=== PATIENT | male | born 1975 | race Caucasian/White ===

== ENCOUNTER 2020-05-02 16:25 | Emergency (ER) | payer MEDICARE ==
[2020-05-02 16:44] VITALS: BP 143/76; PULSE 72; O2SAT 97
--- NOTE | 2020-05-02 16:51 | ERPHSYRPT ---
- History of Present Illness Time Seen by Provider: 05/02/20 16:30 Source: patient Exam Limitations: no limitations Patient Subjective Stated Complaint: Toe injury Triage Nursing Assessment: Patient ambulated back to ED and transferred self to bed. Patient A+O X3. Patient's skin pink, warm and dry. Patient complains of left foot, great toe pain after walking up steps and stubbing toe a couple days ago. Left foot, great toe noted to be slightly swollen, red with nail bed noted to be bruised. Toe noted to be warm. Physician History: 45 years old male presented in the ER with chief complaint of left big toe pain and swelling after he accidentally missed a step and stubbed on his left great toe 2 to 3 days ago. There was pain initially but gradually improved. No patient has bluish discoloration underneath the nail and some redness of the big toe. Patient is worried about as if it is a gangrene. Taking [id number] pain medication with significant relief of pain. No injury anywhere else Quality: aching Severity of Pain-Current: mild Lower Extremities Pain: 1st toe: left Modifying Factors: Improves With: immobilization, rest. Worsens With: movement Allergies/Adverse Reactions: penicillin G Allergy (Verified 05/02/20 16:38) Hives sulfamethoxazole [From Bactrim] Allergy (Verified 05/02/20 16:38) Rash trimethoprim [From Bactrim] Allergy (Verified 05/02/20 16:38) Rash Home Medications: Aspir 81 81 mg PO DAILY 04/15/12 [History] Mucinex 1 ea PO BID 04/15/12 [History] Patanase 1 ea PO BID 04/15/12 [History] Toprol-Xl 25MG Tablets 12.5 mg PO BID 04/15/12 [History] Divalproex Sodium ER 250 mg [Depakote EXTENDED RELEASE 250 MG] 250 mg PO BID 12/08/15 [History] Fluticasone Propionate [Flonase NASAL] 16 gm NS DAILY 12/08/15 [History] Hx Tetanus, Diphtheria Vaccination/Date Given: Yes (2019) Hx Influenza Vaccination/Date Given: Yes Hx Pneumococcal Vaccination/Date Given: No Immunizations Up to Date: Yes Travel Risk - International Travel Have you traveled outside of the country in past 3 weeks: No - Coronavirus Screening Are you exhibiting any of the following symptoms?: No Close contact with a COVID-19 positive Pt in past 14-21 Days: No - Review of Systems Constitutional: No Symptoms Ears, Nose, & Throat: No Symptoms Respiratory: No Symptoms Cardiac: No Symptoms Abdominal/Gastrointestinal: No Symptoms Musculoskeletal: Injury Skin: No Symptoms Neurological: No Symptoms - Past Medical History Pertinent Past Medical History: Yes Cardiac History: Arrhythmia GI Medical History: Gallbladder Disease Other Medical History: allergies - Past Surgical History Past Surgical History: Yes Gastrointestinal: Cholecystectomy Other Surgical History: sinus - Social History Smoking Status: Never smoker Exposure to second hand smoke: No Drug Use: none Patient Lives Alone: No - Nursing Vital Signs Nursing Vital Signs: Initial Vital Signs Temperature 98.2 F 05/02/20 16:39 Pulse Rate 72 05/02/20 16:39 Respiratory Rate 18 05/02/20 16:39 Blood Pressure 143/76 05/02/20 16:39 O2 Sat by Pulse Oximetry 97 05/02/20 16:39 Pain Scale Pain Intensity 4 - Physical Exam General Appearance: no apparent distress Neck Exam: normal inspection, supple, full range of motion Cardiovascular/Respiratory Exam: normal breath sounds, regular rate/rhythm Back Exam: normal range of motion Foot Exam: right foot: non-tender, normal inspection, no evidence of injury, left foot: pain (Minimal tenderness around nail bed. Bruised and small hematoma underneath.), swelling, bilateral foot: normal range of motion Neuro/Tendon Exam: normal sensation, normal motor functions, normal tendon functions Mental Status Exam: alert, oriented x 3, cooperative Skin Exam: normal color SpO2 Interpretation: normal SpO2: 97 O2 Delivery: Room Air - Progress Progress Note: 05/02/20 17:31 Patient has a hematoma underneath left big toe. Offered hematoma drainage and possible nail removal and imaging but patient does not want anything to be done. Patient wants to make sure it is not gangrene. Has good cap refill less than 3 seconds. His nail will probably follow-up on his own in few days. Recommended outpatient podiatry follow-up. Pain medication [id number] as needed. - Departure Departure Disposition: Home Clinical Impression: Injury of toe Qualifiers: Encounter type: initial encounter Laterality: left Qualified Code(s): S99.922A - Unspecified injury of left foot, initial encounter Condition: Critical Care Time: No Referrals: VIANEY SEAY MD [Primary Care Provider] - Follow Up with PCP/3 days MANDEEP ROA NP [NON-STAFF PHY W/O PRIVILEGES] - (follow up with Podiatry for re evaluation in 2-3 days ) Instructions: Toe Injury (DC) Additional Instructions: Take Tylenol/Aleve as needed for pain. Follow-up with primary care and podiatry for reevaluation. Return to ER for worsening pain swelling redness etc.
== END 2020-05-02 16:58 | disposition home or self-care (01) ==
LOC: ED 16:25
DX: S90.112A Contusion of left great toe without damage to nail, initial encounter (principal); M79.675 Pain in left toe(s); W22.8XXA Striking against or struck by other objects, initial encounter; Z79.899 Other long term (current) drug therapy
CPT/HCPCS: 99283

== ENCOUNTER 2020-10-22 05:53 | Day surgery (SDC) | payer MEDICARE ==
[2020-10-22] MEDS ORDERED: Lactated Ringers 1,000 ML IV SCH (06:30)
[2020-10-22] MEDS ORDERED: DIPRIVAN 200 MG/20 ML IV ONE ×2 (06:57→07:29)
[2020-10-22 08:58] VITALS: PULSE 63; O2SAT 99
[2020-10-22 09:01] VITALS: BP 148/78
--- NOTE | 2020-10-22 12:50 | OP ---
SURGERY DATE/TIME: 10/22/2020 0700 PREOPERATIVE DIAGNOSIS: Rectal bleeding. POSTOPERATIVE DIAGNOSES: 1) Two small polyps in the colon. 2) Sigmoid diverticulosis, mild. 3) Mild hemorrhoids. PROCEDURE: Colonoscopy with cold forceps biopsy. SURGEON: Dr. Crump. ANESTHESIA: MAC. Medications given by anesthesia department. HISTORY: The patient is a 45 year-old white male patient who reports he had an episode of rectal bleeding about three weeks ago. He has seen intermittent blood since that time. He is unaware of any significant hemorrhoids. The patient was felt the need to have endoscopic evaluation. He was appraised of the risks of the procedure including the risk of perforation, phlebitis, untoward reaction to medication, bleeding and missed lesions. The patient verbalized his understanding and desired to have the procedure performed. DESCRIPTION OF PROCEDURE: The patient was given the medications by the anesthesia department. He had continuous pulse oximetry, ECG monitoring, intermittent blood pressure monitoring and tidal CO2 monitoring during the examination. He was placed in the left lateral decubitus position. A digital rectal examination was performed and revealed external mild hemorrhoids, normal sphincter tone and prostate was felt to be normal. The flexible Olympus pediatric colonoscope was used to intubate the rectum. A view of the colon was developed sequentially to the cecum including a short distance in the terminal ileum. We noted two small polyps one in the mid transverse colon and one in the mid sigmoid colon measuring approximately 8.7 cm in size and these were biopsied using cold biopsy technique and destroying the lesions. Upon insertion and withdrawal, including a retroflex view in the rectum, no other mucosal lesions were encountered. The scope was removed from the patient who tolerated the procedure well and was sent back to OP recovery in good condition.
== END 2020-10-22 08:50 | disposition home or self-care (01) ==
LOC: SDC 05:53
PROVIDERS: ATTEND Family Medicine
DX: D12.3 Benign neoplasm of transverse colon (principal); K57.30 Diverticulosis of large intestine without perforation or abscess without bleeding; K64.4 Residual hemorrhoidal skin tags
CPT/HCPCS: J2704

== ENCOUNTER 2021-05-16 10:40 | Emergency (ER) | payer MEDICARE ==
--- NOTE | 2021-05-16 11:42 | ERPHSYRPT ---
- History of Present Illness Source: patient Patient Subjective Stated Complaint: Cough Triage Nursing Assessment: Patient ambulated back to ED and transferred self to bed. Patient A+O X3. Patient's skin pink, warm and dry. Patient complains of cough, headache and SOB for one week. Patient denies pain or discomfort. Lungs clear a/p zoey. Physician History: 46 yo unvaccinated male w cough/coryza x 1-[address]/N/V/dyspnea/BELCHER/fever/myalgias. Timing/Duration: other (1-2 wks) Cough Quality/Degree: dry cough Possible Cause: no prior episodes Modifying Factors: Improves With: coughing Associated Symptoms: cough, nasal congestion, nasal drainage, No fever, No chills, No chest pain/soreness, No dizziness, No earache, No facial pain, No headache, No lightheadedness, No muscle aches, No shortness of breath, No sinus infection, No sore throat, No wheezing Allergies/Adverse Reactions: levofloxacin [From Levaquin] Allergy (Verified 05/16/21 10:53) Muscle Aches mold Allergy (Verified 05/16/21 10:53) penicillin G Allergy (Verified 05/16/21 10:53) Hives sulfamethoxazole [From Bactrim] Allergy (Verified 05/16/21 10:53) Rash trimethoprim [From Bactrim] Allergy (Verified 05/16/21 10:53) Rash corn pollen Allergy (Uncoded 05/16/21 10:53) Home Medications: Ascorbic Acid 500 mg [Vitamin C 500 MG] 500 mg PO DAILY 10/15/20 [History] Aspirin EC 81 mg [Ecotrin 81 mg] 81 mg PO DAILY 10/15/20 [History] Azelastine Nasal [Astelin Nasal] 1 ml INTRANASAL BID 10/15/20 [History] Divalproex Sodium ER 250 mg [Depakote EXTENDED RELEASE 250 MG] 250 mg PO BID 10/15/20 [History] Fluticasone Propionate [Flovent Diskus] 50 mcg IH DAILY 10/15/20 [History] Guaifenesin 600 mg ER [Mucinex 600MG ER Tabs] 600 mg PO BID 10/15/20 [History] Metoprolol Succinate 25 mg Xl* [Toprol-Xl 25MG Tablets] 0.5 tab PO BID 10/15/20 [History] Metronidazole [Rosadan] 45 gm TP BID 10/15/20 [History] PANTOPRAZOLE 40 mg Tablet [Protonix 40MG Tablet] 40 mg PO QAM 10/15/20 [History] Pyridoxine HCl (Vitamin B6) [Vitamin B6] 100 mg PO DAILY 10/15/20 [History] Hx Tetanus, Diphtheria Vaccination/Date Given: Yes (2019) Hx Influenza Vaccination/Date Given: Yes Hx Pneumococcal Vaccination/Date Given: No Immunizations Up to Date: Yes Travel Risk - International Travel Have you traveled outside of the country in past 3 weeks: No - Coronavirus Screening Are you exhibiting any of the following symptoms?: Yes Symptoms: Cough: New Onset, Shortness of Breath, Loss of Taste or Smell Close contact with a COVID-19 positive Pt in past 14-21 Days: No - Vaccine Status Have you recieved a Covid-19 vaccination: No - Review of Systems Constitutional: No Symptoms Eyes: No Symptoms Ears, Nose, & Throat: Nose Pain, Nose Congestion, Nose Discharge, Sinus Drainage Respiratory: No Symptoms, Cough Cardiac: No Symptoms Abdominal/Gastrointestinal: No Symptoms Genitourinary Symptoms: No Symptoms Musculoskeletal: No Symptoms Skin: No Symptoms Neurological: No Symptoms Psychological: No Symptoms Endocrine: No Symptoms Hematologic/Lymphatic: No Symptoms Immunological/Allergic: No Symptoms - Past Medical History Pertinent Past Medical History: Yes Neurological History: Migraines ENT History: No Pertinent History Cardiac History: High Cholesterol, Other Respiratory History: Other Endocrine Medical History: No Pertinent History Musculoskeletal History: Arthritis GI Medical History: Gallbladder Disease History: No Pertinent History Psycho-Social History: No Pertinent History Male Reproductive Disorders: No Pertinent History Other Medical History: Allergies, Tacchycardia, Cholecystectomy, Benign Skin Tumor removal L-side of upper back and chest, Sinus Surgery, Cyst removal on chest - Past Surgical History Past Surgical History: Yes Neuro Surgical History: No Pertinent History Cardiac: No Pertinent History Respiratory: No Pertinent History Gastrointestinal: Cholecystectomy Genitourinary: No Pertinent History Musculoskeletal: No Pertinent History Male Surgical History: No Pertinent History Other Surgical History: sinus surgery. keloid removed from back - Social History Smoking Status: Never smoker Exposure to second hand smoke: No Drug Use: none Patient Lives Alone: No - Nursing Vital Signs Nursing Vital Signs: Initial Vital Signs Temperature 98.0 F 05/16/21 10:53 Pulse Rate 75 05/16/21 10:53 Respiratory Rate 18 05/16/21 10:53 Blood Pressure 183/97 05/16/21 10:53 O2 Sat by Pulse Oximetry 98 05/16/21 10:53 Pain Scale Pain Intensity 0 Hypertensive - Physical Exam General Appearance: no apparent distress Eye Exam: PERRL/EOMI, eyes nml inspection Ears, Nose, Throat Exam: normal ENT inspection, TMs normal, pharynx normal, moist mucous membranes Neck Exam: normal inspection, non-tender, supple, full range of motion, No meningismus, No mass, No Brudzinski, No Kernig's, No carotid bruit Respiratory Exam: normal breath sounds, lungs clear, airway intact Cardiovascular Exam: regular rate/rhythm, normal heart sounds, normal peripheral pulses, No murmur Gastrointestinal/Abdomen Exam: soft, normal bowel sounds, No tenderness Back Exam: normal inspection, normal range of motion, No CVA tenderness, No vertebral tenderness Extremity Exam: normal inspection, normal range of motion Neurologic Exam: alert, oriented x 3, cooperative, 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, normal mood/affect, nml cerebellar function, nml station & gait, sensation nml, No motor deficits, No sensory deficit Skin Exam: normal color, warm, dry Lymphatic Exam: inguinal node tender (L), No adenopathy SpO2: 97 O2 Delivery: Room Air - Course Nursing assessment & vital signs reviewed: Yes Ordered Tests: Active Orders 24 hr Category Date Time Status COVID AG-BINAX NOW RAPID TEST Stat Lab 05/16/21 11:04 Completed INFLUENZA A+B ANGELICA Stat Lab 05/16/21 11:04 Completed Lab/Rad Data: Laboratory Results 05/16/21 05/16/21 Range/Units 11:04 11:04 Influenza Type A Ag NEGATIVE (NEGATIVE) Influenza Type B Ag NEGATIVE (NEGATIVE) SARS-CoV-2 Ag (Rapid) POSITIVE A* (NEGATIVE) - Progress Progress Note: 05/16/21 18:27 BP decreasing before discharge Counseled pt/family regarding: lab results, diagnosis, need for follow-up - Departure Departure Disposition: Home Clinical Impression: COVID Condition: Stable Critical Care Time: No Referrals: ALBA FLOWERS MD [Primary Care Provider] - Follow up/PCP as directed Instructions: Cough, Adult (DC), Coronavirus Disease 2019 (COVID-19) (DC) Additional Instructions: Motrin/Tylenol for pain/fever Fluids Get a pulse oximeter and monitor oxygen saturation 2-3 times a day Return to ER for persistent oxygen saturation less than 91% VitaminD 10,000units a day/[id number] a day/Pepcid 40mg a day Follow up with your family Quarantine for 5 days
[2021-05-16 11:44] LABS: COVID AG -BINAX NOW RAPID TEST POSITIVE (NEGATIVE)
[2021-05-16 12:16] VITALS: BP 147/69; PULSE 72
[2021-05-16 12:23] LABS: INFLUENZA A NEGATIVE (NEGATIVE); INFLUENZA B NEGATIVE (NEGATIVE)
[2021-05-16 18:28] VITALS: O2SAT 97
== END 2021-05-16 12:15 | disposition home or self-care (01) ==
LOC: ED 10:40
DX: U07.1 COVID-19 (principal); R05.9 Cough, unspecified; R09.81 Nasal congestion; E78.5 Hyperlipidemia, unspecified; Z79.899 Other long term (current) drug therapy
CPT/HCPCS: 87400; 99000; 99283

== ENCOUNTER 2021-07-09 15:49 | Emergency (ER) | payer MEDICARE ==
[2021-07-09] MEDS ORDERED: Reglan 10 MG/2 ML IV ONE (16:05)
[2021-07-09] MEDS ORDERED: Sodium Chloride 0.9% 1000 ML 1,000 ML IV STA (16:05)
[2021-07-09] MEDS ORDERED: PROTONIX 40 MG IV IV ONE ×2 (16:05→16:34)
[2021-07-09] MEDS ORDERED: Pepcid 20 MG VIAL IV ONE ×2 (16:05→16:34)
[2021-07-09 16:25] LABS: Hematocrit 53.6 % (42-50); Hemoglobin 18.8 gm/dl (12.5-18.0); Mean Cell Volume 84.9 fl (78-100); Mean Corpuscular Hemoglobin 29.8 pg (26-32); Mean Corpuscular Hgb Concent. 35.1 g/dl (32-36); Mean Platelet Volume 9.6 fl (7.5-11.0); Platelet Count 148 K/mm3 (150-450); Red Blood Count 6.31 M/mm3 (4.1-5.6); Red Cell Distribution Width 14.3 % (11.5-14.0); White Blood Count 10.3 K/mm3 (4.0-10.5)
[2021-07-09] MEDS ORDERED: Reglan 10 MG/2 ML ONE (16:34)
[2021-07-09] MEDS ORDERED: Sodium Chloride 0.9% 1000 ML 1,000 ML ONE (16:34)
[2021-07-09 16:39] LABS: ALBUMIN 4.8 g/dL (3.5-5.0); ALKALINE PHOSPHATASE 73 U/L (38-126); AMYLASE 66 U/L (30-110); ANION GAP 16.5 MEQ/L (5-15); BLOOD UREA NITROGEN 15 mg/dL (9-20); CHLORIDE 97 mmol/L (98-107); Carbon Dioxide 27 mmol/L (22-30); Creatinine 1 0.66 mg/dL (0.66-1.25); EST GLOMERULAR FILTRATION RATE > 60.0 ML/MIN; Glucose 112 mg/dL (74-106); LIPASE 46 U/L (23-300); Potassium 4.3 mmol/L (3.5-5.1); SGOT/AST 45 U/L (17-59); SGPT/ALT 47 U/L (0-50); SODIUM 136 mmol/L (137-145); Total Protein 7.2 g/dL (6.3-8.2)
--- NOTE | 2021-07-09 16:39 | ERPHSYRPT ---
- History of Present Illness Time Seen by Provider: 07/09/21 16:37 Historian: patient Exam Limitations: no limitations Patient Subjective Stated Complaint: Abdominal pain Triage Nursing Assessment: Patient ambulated back to ED and transferred self to bed. Patient A+O X3. Patient's skin pink, warm and dry. Patient complains of upper abdominal pain that radiates through the back 5/10. Abdomen soft and round with BS X 4. Patient states pain is worse when drinking or eating. Patient complains of nausea, but denies vomiting or diarrhea. Physician History: Patient is 46-year-old male came to the emergency room with complaining of epigastric abdominal pain which radiated to the back which started yesterday. Patient states that his pain get worse when he eats or drinks. Patient denies this type of symptoms before. Patient has a significant past medical history of chronic allergies sinusitis and hypertension. Patient denies any blood in the stool or urine as well as patient also denies any dizziness chest pain nausea or vomiting. Timing/Duration: yesterday Activities at Onset: none Quality: cramping Abdominal Pain Onset Location: epigastric Pain Radiation: back Severity of Pain-Max: mild Severity of Pain-Current: mild Modifying Factors: Improves With: nothing Associated Symptoms: denies symptoms Allergies/Adverse Reactions: levofloxacin [From Levaquin] Allergy (Verified 07/09/21 15:59) Muscle Aches mold Allergy (Verified 07/09/21 15:59) penicillin G Allergy (Verified 07/09/21 15:59) Hives sulfamethoxazole [From Bactrim] Allergy (Verified 07/09/21 15:59) Rash trimethoprim [From Bactrim] Allergy (Verified 07/09/21 15:59) Rash corn pollen Allergy (Uncoded 07/09/21 15:59) Home Medications: Ascorbic Acid 500 mg [Vitamin C 500 MG] 500 mg PO DAILY 10/15/20 [History] Aspirin EC 81 mg [Ecotrin 81 mg] 81 mg PO DAILY 10/15/20 [History] Azelastine Nasal [Astelin Nasal] 1 ml INTRANASAL BID 10/15/20 [History] Divalproex Sodium ER 250 mg [Depakote EXTENDED RELEASE 250 MG] 250 mg PO BID 10/15/20 [History] Fluticasone Propionate [Flovent Diskus] 50 mcg IH DAILY 10/15/20 [History] Guaifenesin 600 mg ER [Mucinex 600MG ER Tabs] 600 mg PO BID 10/15/20 [History] Metoprolol Succinate 25 mg Xl* [Toprol-Xl 25MG Tablets] 0.5 tab PO BID 10/15/20 [History] Metronidazole [Rosadan] 45 gm TP BID 10/15/20 [History] PANTOPRAZOLE 40 mg Tablet [Protonix 40MG Tablet] 40 mg PO QAM 10/15/20 [ History] Pyridoxine HCl (Vitamin B6) [Vitamin B6] 100 mg PO DAILY 10/15/20 [History] Hx Tetanus, Diphtheria Vaccination/Date Given: Yes ( Hx Influenza Vaccination/Date Given: Yes Hx Pneumococcal Vaccination/Date Given: No Immunizations Up to Date: Yes Travel Risk - International Travel Have you traveled outside of the country in past 3 weeks: No - Coronavirus Screening Are you exhibiting any of the following symptoms?: No Close contact with a COVID-19 positive Pt in past 14-21 Days: No - Vaccine Status Have you recieved a Covid-19 vaccination: No - Review of Systems Constitutional: No Fever, No Chills Eyes: No Symptoms Ears, Nose, & Throat: No Symptoms Respiratory: No Cough, No Dyspnea Cardiac: No Chest Pain, No Edema, No Syncope Abdominal/Gastrointestinal: Abdominal Pain, No Nausea, No Vomiting, No Diarrhea Genitourinary Symptoms: No Dysuria Musculoskeletal: No Back Pain, No Neck Pain Skin: No Rash Neurological: No Dizziness, No Focal Weakness, No Sensory Changes Psychological: No Symptoms Endocrine: No Symptoms All Other Systems: Reviewed and Negative - Past Medical History Pertinent Past Medical History: Yes Neurological History: Migraines ENT History: No Pertinent History Cardiac History: High Cholesterol, Other Respiratory History: Other Endocrine Medical History: No Pertinent History Musculoskeletal History: Arthritis GI Medical History: Gallbladder Disease History: No Pertinent History Psycho-Social History: No Pertinent History Male Reproductive Disorders: No Pertinent History Other Medical History: Allergies, Tacchycardia, Cholecystectomy, Benign Skin Tumor removal L-side of upper back and chest, Sinus Surgery, Cyst removal on chest - Past Surgical History Past Surgical History: Yes Neuro Surgical History: No Pertinent History Cardiac: No Pertinent History Respiratory: No Pertinent History Gastrointestinal: Cholecystectomy Genitourinary: No Pertinent History Musculoskeletal: No Pertinent History Male Surgical History: No Pertinent History Other Surgical History: sinus surgery. keloid removed from back - Social History Smoking Status: Never smoker Exposure to second hand smoke: No Drug Use: none Patient Lives Alone: No - Nursing Vital Signs Nursing Vital Signs: Initial Vital Signs Temperature 97.6 F 07/09/21 16:00 Pulse Rate 103 H 07/09/21 16:00 Respiratory Rate 18 07/09/21 16:00 Blood Pressure 174/103 07/09/21 16:00 O2 Sat by Pulse Oximetry 100 07/09/21 16:00 Pain Scale Pain Intensity 5 - Physical Exam General Appearance: no apparent distress, alert Eye Exam: PERRL/EOMI, eyes nml inspection Ears, Nose, Throat Exam: normal ENT inspection, pharynx normal, moist mucous membranes Neck Exam: normal inspection, non-tender, supple, full range of motion Respiratory Exam: normal breath sounds, lungs clear, No respiratory distress Cardiovascular Exam: regular rate/rhythm, normal heart sounds Gastrointestinal/Abdomen Exam: soft, tenderness (mild ), No mass Back Exam: normal inspection, normal range of motion, No CVA tenderness, No vertebral tenderness Extremity Exam: normal inspection, normal range of motion, pelvis stable Neurologic Exam: alert, oriented x 3, cooperative, normal mood/affect, nml cerebellar function, sensation nml, No motor deficits Skin Exam: normal color, warm, dry SpO2: 100 - Course Nursing assessment & vital signs reviewed: Yes - Radiology Exams Abdomen X-ray Interpretation: Reviewed by me Ordered Tests: Active Orders 24 hr Category Date Time Status OBSTR/ACUTE ABDOMEN SERIES Stat Exams 07/09/21 16:05 Taken AMYLASE Stat Lab 07/09/21 16:15 Completed CBC W DIFF Stat Lab 07/09/21 16:15 Completed CMP Stat Lab 07/09/21 16:15 Completed LIPASE Stat Lab 07/09/21 16:15 Completed Manual Differential NC Stat Lab 07/09/21 16:15 Completed Medication Summary Discontinued Medications Generic Name Dose Route Start Last Admin Trade Name Freq PRN Reason Stop Dose Admin Famotidine 20 mg 07/09/21 16:05 07/09/21 16:36 Famotidine 20 Mg/1 Vial IV 07/09/21 16:06 20 mg STAT ONE Administration Famotidine Confirm 07/09/21 16:34 Famotidine 20 Mg/1 Vial Administered 07/09/21 16:35 Dose 20 mg IV .STK-MED ONE Sodium Chloride 1,000 mls @ 999 mls/hr 07/09/21 16:05 07/09/21 16:36 Sodium Chloride 0.9% 1000 Ml IV 07/09/21 17:05 999 mls/hr .Q1H1M STA Administration Sodium Chloride Confirm 07/09/21 16:34 Sodium Chloride 0.9% 1000 Ml Administered 07/09/21 16:35 Dose 1,000 mls @ ud .ROUTE .STK-MED ONE Metoclopramide HCl 10 mg 07/09/21 16:05 07/09/21 16:36 Metoclopramide Hcl 10 Mg/2 Ml Vial IV 07/09/21 16:06 10 mg STAT ONE Administration Metoclopramide HCl Confirm 07/09/21 16:34 Metoclopramide Hcl 10 Mg/2 Ml Vial Administered 07/09/21 16:35 Dose 10 mg .ROUTE .STK-MED ONE Pantoprazole Sodium 40 mg 07/09/21 16:05 07/09/21 16:37 Pantoprazole 40 Mg Vial IV 07/09/21 16:06 40 mg STAT ONE Administration Pantoprazole Sodium Confirm 07/09/21 16:34 Pantoprazole 40 Mg Vial Administered 07/09/21 16:35 Dose 40 mg IV .STK-MED ONE Lab/Rad Data: Laboratory Result Diagrams 07/09/21 16:15 07/09/21 16:15 Laboratory Results 07/09/21 07/09/21 Range/Units 16:15 16:15 WBC 10.3 (4.0-10.5) K/mm3 RBC 6.31 H (4.1-5.6) M/mm3 Hgb 18.8 H (12.5-18.0) gm/dl Hct 53.6 H (42-50) % MCV 84.9 (78-100) fl MCH 29.8 (26-32) pg MCHC 35.1 (32-36) g/dl RDW 14.3 H (11.5-14.0) % Plt Count 148 L (150-450) K/mm3 MPV 9.6 (7.5-11.0) fl Sodium 136 L (137-145) mmol/L Potassium 4.3 (3.5-5.1) mmol/L Chloride 97 L (98-107) mmol/L Carbon Dioxide 27 (22-30) mmol/L Anion Gap 16.5 H (5-15) MEQ/L BUN 15 (9-20) mg/dL Creatinine 0.66 (0.66-1.25) mg/dL Estimated GFR > 60.0 ML/MIN Glucose 112 H (74-106) mg/dL Calcium 9.0 (8.4-10.2) mg/dL Total Bilirubin 1.50 H (0.2-1.3) mg/dL AST 45 (17-59) U/L ALT 47 (0-50) U/L Alkaline Phosphatase 73 (38-126) U/L Serum Total Protein 7.2 (6.3-8.2) g/dL Albumin 4.8 (3.5-5.0) g/dL Amylase 66 (30-110) U/L Lipase 46 (23-300) U/L - Progress Progress: improved, pain not gone completely Counseled pt/family regarding: lab results, diagnosis, need for follow-up, rad results - Departure Departure Disposition: Home Clinical Impression: Epigastric abdominal pain, Gastritis and duodenitis Condition: Stable Critical Care Time: No Referrals: ALBA FLOWERS MD [Primary Care Provider] - Follow up/PCP as directed Instructions: Acute Abdomen (Belly Pain), Adult (DC), Acid Reflux and GERD in Adults (DC) Additional Instructions: Discharge/Care Plan FELIPE HOUSTON was seen on 07/09/21 in the Emergency Room. The patient was counseled regarding Diagnosis,Lab results, Imaging studies, need for follow up and when to return to the Emergency Room. Prescriptions given: Discharge Note I have spoken with the patient and/or caregivers. I have explained the patient's condition, diagnosis and treatment plan based on the information available to me at this time. I have answered the patient's and/or caregiver's questions and addressed any concerns. The patient and/or caregivers have as good understanding of the patient's diagnosis, condition and treatment plan as can be expected at this point. The vital signs have been stable. The patient's condition is stable and appropriate for discharge from the emergency department. The patient will pursue further outpatient evaluation with the primary care physician or other designated or consulting physician as outlined in the discharge instructions. The patient and/or caregivers are agreeable to this plan of care and follow-up instructions have been explained in detail. The patient and/or caregivers have received these instruction. The patient/and or caregivers are aware that any significant change in condition or worsening of symptoms should prompt an immediate return to this or the closest emergency department or call 911. FELIPE HOUSTON was seen on 07/09/21 n the Emergency Room. At that time you were treated for an emergent condition, during your visit Laboratory, Radiology and/or other procedures may have been ordered. It is very important that you follow-up with your Primary Care Physician ALBA FLOWERS within the next 24-48 hours to review your Emergency Room visit and the final results of testing that was ordered. Some test results such as Urine Cultures, Blood Cultures, and other cultures if ordered will not be finalized for 24-48 hours. If you do not have a Primary Care Provider please call the medical records department at [phone] ext [phone] to obtain a copy of your results or you may sign into our patient portal to obtain these results by visiting us [email or web address] and completing the following steps: 1. Click on the Patient Portal link 2. Click the Patient Self Enrollment Link to complete the enrollment form and entering your 3. Once the enrollment form is completed you will receive an email with a temporary ID and password at the email address you provided. 4. Next choose a user name and password. Your user name must be at least 4 characters long and your password must be at least 4 characters long. 5. Choose a security question from the list and provide your answer to the question. If you already have signed into the Health Portal you may access your Health Care Information 06/11 by the following steps: 1. Login to our website @ [email or web address] 2. Enter your original user name and password. FAQS The [facility] Health Portal is an online tool that contains your Lab Results, Radiology Reports, Visit History, Discharge Instructions and Health Summary Lab and Radiology Results will not be available for 72 hours on the portal. The Portal is a secure site, passwords are encryted and URLs are re-written so they cannot be copied and pasted. You and authorized family members are the only ones who can access your Portal. Also there is a timeout feature that protects your information if you leave the Portal page open. If you have technical difficulty please use the Contact Us link on the page this will allow you to submit any questions you have regarding the Portal or you may contact the Medical Record Department at [phone] ext [phone]. Prescriptions: Famotidine 20 mg PO BID #30 tablet
[2021-07-09 17:25] VITALS: PULSE 96; O2SAT 97
[2021-07-09 17:26] VITALS: BP 141/101
--- NOTE | 2021-07-09 20:28 | XRAY ---
Indication: Epigastric pain. Comparison: Chest exam April 17, 2019. 2 view abdomen nonacute and nonobstructed with mild diffuse fecal stasis greatest in ascending and transverse colon. Cholecystectomy clips. Remaining solid organs and osseous structures unremarkable. PA chest demonstrates new minimal left base fibrosis/scarring. Remaining heart and lungs unremarkable. Bony thorax intact. Impression: Mild fecal stasis. Continued nonacute one view chest.
== END 2021-07-09 17:30 | disposition home or self-care (01) ==
LOC: ED 15:49
DX: K29.70 Gastritis, unspecified, without bleeding (principal); K29.80 Duodenitis without bleeding; R10.13 Epigastric pain; E78.5 Hyperlipidemia, unspecified; Z79.899 Other long term (current) drug therapy
CPT/HCPCS: 36000; 36415; 74022; 80053; 82150; 83690; 85025; 96374; 96375; 99284

== ENCOUNTER 2022-09-24 10:50 | Emergency (ER) | payer MEDICARE ==
--- NOTE | 2022-09-24 11:00 | ERPHSYRPT ---
- History of Present Illness Time Seen by Provider: 09/24/22 10:59 Source: patient Exam Limitations: no limitations Physician History: This is a 47-year-old white male patient of Dr. Flowers who has chronic back pain issues. As recent as 07/21/[address] scan of the abdomen and pelvis with contrast. The osseous structures were intact with mild to moderate degenerative spondylosis throughout the thoracolumbar spine. Today, the patient slipped on wet pavement on steps. He felt a "crunch" in the lower lumbar region. He was able to ambulate without apparent difficulty to his emergency department room. Patient has a history of gastroesophageal reflux disease and seizure disorder. Timing/Duration: today Method of Injury: slipped (Slipped on wet concrete) Quality: aching Back Pain Location: lumbar spine Severity of Pain-Max: moderate Severity of Pain-Current: mild (Mild to moderate) Modifying Factors: Improves With: movement Associated Symptoms: denies symptoms, lower back pain, muscle spasms, No urinary incontinence, No problems urinating, No numbness in legs/feet, No sensory/motor loss, No tingling in legs/feet Previous symptoms: same symptoms as today, no recent treatment Allergies/Adverse Reactions: levofloxacin [From Levaquin] Allergy (Verified 09/24/22 11:08) Muscle Aches mold Allergy (Verified 09/24/22 11:08) penicillin G Allergy (Verified 09/24/22 11:08) Hives sulfamethoxazole [From Bactrim] Allergy (Verified 09/24/22 11:08) Rash trimethoprim [From Bactrim] Allergy (Verified 09/24/22 11:08) Rash corn pollen Allergy (Uncoded 09/24/22 11:08) Home Medications: Ascorbic Acid 500 mg [Vitamin C 500 MG] 500 mg PO DAILY 10/15/20 [History] Aspirin EC 81 mg [Ecotrin 81 mg] 81 mg PO DAILY 10/15/20 [History] Azelastine Nasal [Astelin Nasal] 1 ml INTRANASAL BID 10/15/20 [History] Divalproex Sodium ER 250 mg [Depakote EXTENDED RELEASE 250 MG] 250 mg PO BID 10/15/20 [History] Fluticasone Propionate [Flovent Diskus] 50 mcg IH DAILY 10/15/20 [History] Metoprolol Succinate 25 mg Xl* [Toprol-Xl 25MG Tablets] 0.5 tab PO BID 10/15/20 [History] Metronidazole [Rosadan] 45 gm TP BID 10/15/20 [History] PANTOPRAZOLE 40 mg Tablet [Protonix 40MG Tablet] 40 mg PO QAM 10/15/20 [History] Hx Tetanus, Diphtheria Vaccination/Date Given: Yes (2019) Hx Influenza Vaccination/Date Given: Yes Hx Pneumococcal Vaccination/Date Given: No Travel Risk - International Travel Have you traveled outside of the country in past 3 weeks: No - Coronavirus Screening Are you exhibiting any of the following symptoms?: No Close contact with a COVID-19 positive Pt in past 14-21 Days: No - Vaccine Status Have you recieved a Covid-19 vaccination: No - Review of Systems Constitutional: No Symptoms Eyes: No Symptoms Ears, Nose, & Throat: No Symptoms Respiratory: No Symptoms Cardiac: No Symptoms Abdominal/Gastrointestinal: No Symptoms Genitourinary Symptoms: No Symptoms Musculoskeletal: Back Pain, Fall Skin: No Symptoms Neurological: No Symptoms Psychological: No Symptoms Endocrine: No Symptoms Hematologic/Lymphatic: No Symptoms Immunological/Allergic: No Symptoms All Other Systems: Reviewed and Negative - Past Medical History Pertinent Past Medical History: Yes Neurological History: Migraines ENT History: No Pertinent History Cardiac History: High Cholesterol, Other Respiratory History: Other Endocrine Medical History: No Pertinent History Musculoskeletal History: Arthritis GI Medical History: Gallbladder Disease History: No Pertinent History Psycho-Social History: No Pertinent History Male Reproductive Disorders: No Pertinent History Other Medical History: Allergies, Tacchycardia, Cholecystectomy, Benign Skin Tumor removal L-side of upper back and chest, Sinus Surgery, Cyst removal on chest - Past Surgical History Past Surgical History: Yes Neuro Surgical History: No Pertinent History Cardiac: No Pertinent History Respiratory: No Pertinent History Gastrointestinal: Cholecystectomy Genitourinary: No Pertinent History Musculoskeletal: No Pertinent History Male Surgical History: No Pertinent History Other Surgical History: sinus surgery. keloid removed from back - Social History Smoking Status: Never smoker Exposure to second hand smoke: No Drug Use: none Patient Lives Alone: No - Nursing Vital Signs Nursing Vital Signs: Initial Vital Signs Temperature 97.0 F 09/24/22 11:20 Pulse Rate 63 09/24/22 11:20 Respiratory Rate 18 09/24/22 11:20 Blood Pressure 141/80 09/24/22 11:20 O2 Sat by Pulse Oximetry 99 09/24/22 11:20 Pain Scale Pain Intensity [Left Back] 7 Pain Intensity 7 - Physical Exam General Appearance: no apparent distress, alert, anxiety Eye Exam: PERRL/EOMI, eyes nml inspection Ears, Nose, Throat Exam: normal ENT inspection, moist mucous membranes Neck Exam: normal inspection, non-tender, supple, full range of motion Respiratory Exam: airway intact, No chest tenderness, No respiratory distress Gastrointestinal Exam: No tenderness Rectal Exam: not done Back Exam: normal inspection, normal range of motion, muscle spasm (Lumbar level, bilateral), No CVA tenderness, No vertebral tenderness Extremity Exam: normal inspection, normal range of motion, pelvis stable Neurologic Exam: alert, oriented x 3, cooperative, blacksmith helper II-XII nml as tested, normal mood/affect, nml cerebellar function, nml station & gait, sensation nml Skin Exam: normal color, warm, dry Lymphatic Exam: No adenopathy SpO2 Interpretation: normal - Course Nursing assessment & vital signs reviewed: Yes Ordered Tests: Active Orders 24 hr Category Date Time Status LUMBAR LIMITED (2 OR 3 VIEWS) Stat Exams 09/24/22 11:45 Taken - Progress Progress: unchanged, pain not gone completely, re-examined Progress Note: 09/24/22 11:50 Lumbar spine x-rays interpreted by me. No acute fracture or subluxation present. This patient's medical issue is 1 of low complexity. The level of complexity and the work-up performed is based on review of the patient's past medical history, review of the patient's past radiographic studies, reviewed the patient's medication list, reviewed the patient's drug allergy list, history of present illness and physical findings on examination. The work-up on this patient includes lumbar spine x-rays which were interpreted by me. The patient, clinically, shows full range of motion. Radiographically he has no acute, emergent findings. We will send prescriptions to his pharmacy to include prednisone and orphenadrine if there are no contraindications. Patient is to follow-up with his primary care provider. Patient does have chronic low back pain issues and degenerative changes. Counseled pt/family regarding: diagnosis, need for follow-up, rad results Medical Desision Making - Diagnostic Testing Diagnostic test were ordered, analyzed, and reviewed by me: Yes Radiological Interpretation: Interpreted by me - Risk of complications The pt has a mod risk of morbidity or mortality based on: Need for prescription drug management - Departure Departure Disposition: Home Clinical Impression: Low back pain, Fall with no significant injury Condition: Stable Critical Care Time: No Referrals: ALBA FLOWERS MD [Primary Care Provider] - Follow up/PCP as directed Additional Instructions: Take your medication as prescribed. Call your primary care provider tomorrow, 09/25/2022 to make arranges for follow-up appointment for further evaluation and management including possible referral to a pain specialist and/or back specialist if indicated. Prescriptions: Prednisone 10 mg [Deltasone 10 mg] 10 mg PO TID #12 tablet Orphenadrine Citrate 100 mg [Norflex 100 MG Tablet] 100 mg PO BID #10 tab
[2022-09-24 11:21] VITALS: BP 141/80; PULSE 63; O2SAT 99
--- NOTE | 2022-09-24 19:15 | XRAY ---
Indication: Pain following fall. Comparison: January 16, 2020 3 view lumbar spine demonstrates new minimally displaced left L1/L2 transverse process fractures. Stable old right L2/left L3 transverse process fractures, minimal multilevel endplate spurring, bilateral L5 spondylolysis with minimal listhesis, and cholecystectomy clips. Comment: Fractures not reported by interpreting ER clinician. Telephone report was given to Dr. Layton at 1911 hrs. on September 24, 2022.
== END 2022-09-24 12:20 | disposition home or self-care (01) ==
LOC: ED 10:50
DX: S32.019A Unspecified fracture of first lumbar vertebra, initial encounter for closed fracture (principal); S32.029A Unspecified fracture of second lumbar vertebra, initial encounter for closed fracture; W10.9XXA Fall (on) (from) unspecified stairs and steps, initial encounter; M54.50 Low back pain, unspecified; E78.5 Hyperlipidemia, unspecified; Z79.52 Long term (current) use of systemic steroids; Z79.899 Other long term (current) drug therapy; Z28.310 Unvaccinated for COVID-19
CPT/HCPCS: 72100; 99282

== ENCOUNTER 2023-03-25 19:38 | Emergency (ER) | payer MEDICARE ==
--- NOTE | 2023-03-25 20:53 | ERPHSYRPT ---
- History of Present Illness Time Seen by Provider: 03/25/23 19:46 Patient Subjective Stated Complaint: pt states that he has had a forehead/ frontal headache since earlier this morning and at 1100 he started having bilat upper abdominal pain (epigastric) that at times radiates down to mid and lower abd bilat but is constant dull ache in epigasric area. reports also being nauseated but hasn't vomited and that he has had several stools today but there weren't diarrhea and didn't contain any visible blood. pt reports just prior to coming to ED his temperature was 102.4 Triage Nursing Assessment: pt ambulated to room 9 independently with slow steady gait after standing on scale for weight acquisition and to restroom to provide urine sample. pt is alert and oriented times three, able to speak in complete sentences, able to move all extremities, and with resp even and unlabored. abdomen is soft, obese, nontender to touch, and with positive bowel sounds in all quadrants. pt denies cp, sob, difficulty breathing, change in appetite, difficulty with urination or bowel elimination. Physician History: 48 years old male presented to the ER with chief complaint of upper abdominal pain with nausea, dry heaving along with body aches fatigue tiredness headache and temperature with a Tmax of 102 prior to arrival. Patient reports he has taken couple of leaves earlier today with no significant relief. Denies any known sick contact. No chest pain palpitations or shortness of breath, minimal nonproductive cough at times. Allergies/Adverse Reactions: levofloxacin [From Levaquin] Allergy (Verified 03/25/23 19:47) Muscle Aches mold Allergy (Verified 03/25/23 19:47) penicillin G Allergy (Verified 03/25/23 19:47) Hives sulfamethoxazole [From Bactrim] Allergy (Verified 03/25/23 19:47) Rash trimethoprim [From Bactrim] Allergy (Verified 03/25/23 19:47) Rash corn pollen Allergy (Uncoded 09/24/22 11:08) Home Medications: Aspirin EC 81 mg [Ecotrin 81 mg] 81 mg PO DAILY 10/15/20 [History] Azelastine Nasal [Astelin Nasal] 1 ml INTRANASAL BID 10/15/20 [History] Divalproex Sodium ER 250 mg [Depakote EXTENDED RELEASE 250 MG] 250 mg PO BID 10/15/20 [History] Fluticasone Propionate [Flovent Diskus] 50 mcg IH DAILY 10/15/20 [History] Metoprolol Succinate 25 mg Xl* [Toprol-Xl 25MG Tablets] 1 tab PO BID 10/15/20 [History] Metronidazole [Rosadan] 45 gm TP BID 10/15/20 [History] PANTOPRAZOLE 40 mg Tablet [Protonix 40MG Tablet] 40 mg PO HS 10/15/20 [History] Ascorbic Acid 500 mg [Vitamin C 500 MG] 500 mg PO HS 03/25/23 [History] Famotidine 20 mg PO DAILY 03/25/23 [History] Minocycline Cream 1 each TOP BID 03/25/23 [History] Rosuvastatin Calcium 10 mg PO HS 03/25/23 [History] Hx Tetanus, Diphtheria Vaccination/Date Given: Yes (2019) Hx Influenza Vaccination/Date Given: Yes Hx Pneumococcal Vaccination/Date Given: Yes (unsure of when, but was told was for life) Immunizations Up to Date: Yes Travel Risk - International Travel Have you traveled outside of the country in past 3 weeks: No - Coronavirus Screening Are you exhibiting any of the following symptoms?: No Close contact with a COVID-19 positive Pt in past 14-21 Days: No - Vaccine Status Have you recieved a Covid-19 vaccination: No - Review of Systems Constitutional: Fever, Fatigue, Weakness Eyes: No Symptoms Ears, Nose, & Throat: No Symptoms Respiratory: Cough Cardiac: No Symptoms Abdominal/Gastrointestinal: Abdominal Pain, Nausea Genitourinary Symptoms: No Symptoms Musculoskeletal: Myalgias Skin: No Symptoms Neurological: Headache Endocrine: No Symptoms Hematologic/Lymphatic: No Symptoms Immunological/Allergic: No Symptoms - Past Medical History Pertinent Past Medical History: Yes Neurological History: Migraines ENT History: Other Cardiac History: High Cholesterol, Other Respiratory History: Bronchitis Endocrine Medical History: No Pertinent History Musculoskeletal History: Arthritis, Degenerative Disk Disease GI Medical History: Gallbladder Disease History: No Pertinent History Psycho-Social History: No Pertinent History Male Reproductive Disorders: No Pertinent History Other Medical History: PATIENT SEES A NEUROLOGIST FOR MIGRAINES. HE REPORTS ISSUES WITH HIS HEART GOING TO FAST BUT UNABLE TO RECALL DX. PATIENT REPORTS SEEING AN ALLERGY DOCTOR, PULMONARY DOCTOR AND NEUROLOGIST. DR. DOMÍNGUEZ FOR [employer]. chronic sinus infections, - Past Surgical History Past Surgical History: Yes Neuro Surgical History: No Pertinent History Cardiac: No Pertinent History Respiratory: No Pertinent History Gastrointestinal: Cholecystectomy Genitourinary: No Pertinent History Musculoskeletal: No Pertinent History Male Surgical History: No Pertinent History Other Surgical History: sinus surgery. keloid removed from back - Social History Smoking Status: Never smoker Exposure to second hand smoke: No Drug Use: none Patient Lives Alone: No - Nursing Vital Signs Nursing Vital Signs: Initial Vital Signs Temperature 99.4 F 03/25/23 19:48 Pulse Rate 60 03/25/23 19:48 Respiratory Rate 18 03/25/23 19:48 Blood Pressure 91/57 03/25/23 19:48 O2 Sat by Pulse Oximetry 100 03/25/23 19:48 Pain Scale Pain Intensity 4 - Physical Exam General Appearance: No apparent distress Head, Eyes, Nose, & Throat Exam: head inspection normal, PERRL, EOMI Ear Exam: bilateral ear: auricle normal, canal normal, TM normal Neck Exam: normal inspection, non-tender, supple, full range of motion, No meningismus Respiratory Exam: normal breath sounds, lungs clear Cardiovascular Exam: regular rate/rhythm, normal heart sounds Gastrointestinal Exam: soft, normal bowel sounds, tenderness (Epigastric/right upper quadrant/periumbilical area) Neurologic Exam: alert, cooperative, 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, moves all extremities, nml cerebellum, nml station & gait Skin Exam: normal color SpO2 Interpretation: normal Spo2: 98 O2 Delivery: Room Air Ordered Tests: Active Orders 24 hr Category Date Time Status IV Insertion STAT Care 03/25/23 21:06 Active NPO (ED) STAT Care 03/25/23 21:06 Active ABDOMEN AND PELVIS W/0 CONTRAS [CT] Stat Exams 03/25/23 21:06 Completed CBC W DIFF Stat Lab 03/25/23 21:08 Completed CMP Stat Lab 03/25/23 21:08 Completed LIPASE Stat Lab 03/25/23 21:08 Completed TROPONIN Q4H Lab 03/25/23 21:08 Completed TROPONIN Q4H Lab 03/26/23 01:15 Ordered TROPONIN Q4H Lab 03/26/23 05:15 Ordered UA W/RFX UR CULTURE Stat Lab 03/25/23 21:08 Completed Medication Summary Discontinued Medications Generic Name Dose Route Start Last Admin Trade Name Isaak PRN Reason Stop Dose Admin Amoxicillin/Clavulanate Potassium 875 mg 03/25/23 23:28 Amox Tr/Potassium Clavulanate 875 Mg Tablet PO 03/25/23 23:29 STAT ONE Sodium Chloride 1,000 mls @ 999 mls/hr 03/25/23 21:06 03/25/23 22:17 Sodium Chloride 0.9% 1000 Ml IV 03/25/23 22:06 Infused .Q1H1M STA Infusion Sodium Chloride Confirm 03/25/23 21:10 Sodium Chloride 0.9% 1000 Ml Administered 03/25/23 21:11 Dose 1,000 mls @ ud .ROUTE .STK-MED ONE Morphine Sulfate 4 mg 03/25/23 21:06 03/25/23 21:18 Morphine Sulfate 4 Mg/Ml Injection IV 03/25/23 21:07 4 mg STAT ONE Administration Morphine Sulfate Confirm 03/25/23 21:10 Morphine Sulfate 4 Mg/Ml Injection Administered 03/25/23 21:11 Dose 4 mg .ROUTE .STK-MED ONE Ondansetron HCl 4 mg 03/25/23 21:06 03/25/23 21:18 Ondansetron Hcl 4 Mg/2 Ml Vial IV 03/25/23 21:07 4 mg STAT ONE Administration Ondansetron HCl Confirm 03/25/23 21:10 Ondansetron Hcl 4 Mg/2 Ml Vial Administered 03/25/23 21:11 Dose 4 mg .ROUTE .STK-MED ONE Lab/Rad Data: Laboratory Result Diagrams 03/25/23 21:08 03/25/23 21:08 Laboratory Results 03/25/23 03/25/23 03/25/23 Range/Units 21:13 21:08 21:08 WBC (4.0-10.5) x10^3/uL RBC (4.1-5.6) x10^6/uL Hgb (12.5-18.0) g/dL Hct (42-50) % MCV (78-100) fL MCH (26-32) pg MCHC (32-36) g/dL RDW (11.5-14.0) % Plt Count (150-450) x10^3/uL MPV (7.5-11.0) fL Gran % (36.0-66.0) % Immature Gran % (Auto) (0.00-0.4) % Nucleat RBC Rel Count (0.00-0.1) % Eos # (Auto) (0-0.5) x10^3/uL Immature Gran # (Auto) (0.00-0.03) x10^3u/L Absolute Lymphs (auto) (1.0-4.6) x10^3/uL Absolute Monos (auto) (0.0-1.3) x10^3/uL Absolute Nucleated RBC (0.00-0.01) x10^3u/L Lymphocytes % (24.0-44.0) % Monocytes % (0.0-12.0) % Eosinophils % (0.00-5.0) % Basophils % (0.0-0.4) % Absolute Granulocytes (1.4-6.9) x10^3/uL Basophils # (0-0.4) x10^3/uL Sodium 135 L (137-145) mmol/L Potassium 4.3 (3.5-5.1) mmol/L Chloride 101 (98-107) mmol/L Carbon Dioxide 26 (22-30) mmol/L Anion Gap 12.2 (5-15) MEQ/L BUN 13 (9-20) mg/dL Creatinine 0.83 (0.66-1.25) mg/dL Estimated GFR 107.3 ML/MIN Glucose 99 (74-106) mg/dL Calcium 8.7 (8.4-10.2) mg/dL Total Bilirubin 0.80 (0.2-1.3) mg/dL AST 35 (17-59) U/L ALT 26 (0-50) U/L Alkaline Phosphatase 82 (38-126) U/L Troponin I < 0.012 (0.000-0.034) ng/mL Serum Total Protein 6.7 (6.3-8.2) g/dL Albumin 4.1 (3.5-5.0) g/dL Lipase 55 (23-300) U/L Urine Color (Yellow) Urine Appearance (Clear) Urine pH (4.6-8.0) Ur Specific [place] (1.005-1.030) Urine Protein (Negative) Urine Glucose (UA) (Negative) mg/dL Urine Ketones (Negative) Urine Blood (Negative) Urine Nitrite (Negative) Urine Bilirubin (Negative) Urine Urobilinogen (0.2) mg/dL Ur Leukocyte Esterase (Negative) U Hyaline Cast (Auto) (0-2) /LPF Urine Microscopic RBC (0-5) /HPF Urine Microscopic WBC (0-5) /HPF Ur Epithelial Cells (None Seen) /HPF Urine Bacteria (None Seen) /HPF Urine Culture Reflexed (NO) Influenza Type A Ag NEGATIVE (NEGATIVE) Influenza Type B Ag NEGATIVE (NEGATIVE) RSV (PCR) NEGATIVE (NEGATIVE) SARS-CoV-2 (PCR) NEGATIVE (NEGATIVE) 03/25/23 03/25/23 Range/Units 21:08 21:08 WBC 10.7 H (4.0-10.5) x10^3/uL RBC 5.35 (4.1-5.6) x10^6/uL Hgb 13.2 (12.5-18.0) g/dL Hct 41.2 L (42-50) % MCV 77.0 L (78-100) fL MCH 24.7 L (26-32) pg MCHC 32.0 (32-36) g/dL RDW 13.3 (11.5-14.0) % Plt Count 186 (150-450) x10^3/uL MPV 9.8 (7.5-11.0) fL Gran % 81.0 H (36.0-66.0) % Immature Gran % (Auto) 0.3 (0.00-0.4) % Nucleat RBC Rel Count 0.0 (0.00-0.1) % Eos # (Auto) 0.02 (0-0.5) x10^3/uL Immature Gran # (Auto) 0.03 (0.00-0.03) x10^3u/L Absolute Lymphs (auto) 0.77 L (1.0-4.6) x10^3/uL Absolute Monos (auto) 1.19 (0.0-1.3) x10^3/uL Absolute Nucleated RBC 0.00 (0.00-0.01) x10^3u/L Lymphocytes % 7.2 L (24.0-44.0) % Monocytes % 11.1 (0.0-12.0) % Eosinophils % 0.2 (0.00-5.0) % Basophils % 0.2 (0.0-0.4) % Absolute Granulocytes 8.66 H (1.4-6.9) x10^3/uL Basophils # 0.02 (0-0.4) x10^3/uL Sodium (137-145) mmol/L Potassium (3.5-5.1) mmol/L Chloride (98-107) mmol/L Carbon Dioxide (22-30) mmol/L Anion Gap (5-15) MEQ/L BUN (9-20) mg/dL Creatinine (0.66-1.25) mg/dL Estimated GFR ML/MIN Glucose (74-106) mg/dL Calcium (8.4-10.2) mg/dL Total Bilirubin (0.2-1.3) mg/dL AST (17-59) U/L ALT (0-50) U/L Alkaline Phosphatase (38-126) U/L Troponin I (0.000-0.034) ng/mL Serum Total Protein (6.3-8.2) g/dL Albumin (3.5-5.0) g/dL Lipase (23-300) U/L Urine Color Yellow (Yellow) Urine Appearance Clear (Clear) Urine pH >=9.0 A (4.6-8.0) Ur Specific [place] 1.025 (1.005-1.030) Urine Protein 100 A (Negative) Urine Glucose (UA) Negative (Negative) mg/dL Urine Ketones Negative (Negative) Urine Blood Negative (Negative) Urine Nitrite Negative (Negative) Urine Bilirubin Negative (Negative) Urine Urobilinogen 1.0 A (0.2) mg/dL Ur Leukocyte Esterase Negative (Negative) U Hyaline Cast (Auto) NONE SEEN (0-2) /LPF Urine Microscopic RBC 0-2 (0-5) /HPF Urine Microscopic WBC 0-2 (0-5) /HPF Ur Epithelial Cells None Seen (None Seen) /HPF Urine Bacteria None Seen (None Seen) /HPF Urine Culture Reflexed NO (NO) Influenza Type A Ag (NEGATIVE) Influenza Type B Ag (NEGATIVE) RSV (PCR) (NEGATIVE) SARS-CoV-2 (PCR) (NEGATIVE) - Progress Progress: improved, re-examined Progress Note: 03/25/23 23:33 48 years old male presented to the ER with chief complaint of upper abdominal pain with nausea, dry heaving along with body aches fatigue tiredness headache and temperature with a Tmax of 102 prior to arrival. Patient reports he has aaron en couple of leaves earlier today with no significant relief. Denies any known sick contact. No chest pain palpitations or shortness of breath, minimal nonproductive cough at times. Is given fluids and symptomatic treatment, on reevaluation feeling much better. Workup showed normal white count, fairly unremarkable chemistries, no UTI. CT finding consistent with acute diverticulitis without abscess or perforation. Patient is hemodynamically stable. I believe patient can be managed outpatient antibiotics. Patient is allergic to penicillin G but not amoxicillin/Augmentin confirmed by patient and mom. He started on Augmentin. Recommended taking Tylenol ibuprofen and outpatient follow-up. Discussed signs symptoms of worsening needing return to ER which he seems understanding. Stable for discharge. 03/25/23 23:32 Counseled pt/family regarding: diagnosis, need for follow-up, rad results - Departure Departure Disposition: Home Clinical Impression: Acute diverticulitis Condition: Stable Critical Care Time: No Referrals: ALBA FLOWERS MD [Primary Care Provider] - Follow up with PCP 1 day Instructions: Diverticulitis (DC) Additional Instructions: Take Tylenol/ibuprofen as needed for pain. Follow-up with primary care for reevaluation. Return to ER for intractable abdominal pain/fever chills/diarrhea etc. Prescriptions: Amox Tr/Potass Clav. 875 mg [Augmentin 875-125 Tablet] 875 mg PO BID #14 tablet
[2023-03-25] MEDS ORDERED: Sodium Chloride 0.9% 1000 ML 1,000 ML IV STA (21:06)
[2023-03-25] MEDS ORDERED: Zofran 4 MG/2 ML VIAL IV ONE (21:06)
[2023-03-25] MEDS ORDERED: MORPHINE SULFATE 4 MG INJ IV ONE (21:06)
[2023-03-25] MEDS ORDERED: Sodium Chloride 0.9% 1000 ML 1,000 ML ONE (21:10)
[2023-03-25] MEDS ORDERED: Zofran 4 MG/2 ML VIAL ONE (21:10)
[2023-03-25] MEDS ORDERED: MORPHINE SULFATE 4 MG INJ ONE (21:10)
[2023-03-25 21:11] LABS: Absolute Neutrophil Ct (ANC) 8.66 x10^3/uL (1.4-6.9); BASOPHIL % 0.2 % (0.0-0.4); Basophil (Absolute #) 0.02 x10^3/uL (0-0.4); Eosinophil % 0.2 % (0.00-5.0); Eosinophil (Absolute #) 0.02 x10^3/uL (0-0.5); Hematocrit 41.2 % (42-50); Hemoglobin 13.2 g/dL (12.5-18.0); IMMATURE GRAN # 0.03 x10^3u/L (0.00-0.03); IMMATURE GRAN % 0.3 % (0.00-0.4); Lymphocyte (Absolute #) 0.77 x10^3/uL (1.0-4.6); Lymphocytes % 7.2 % (24.0-44.0); Mean Corpuscular Hemoglobin 24.7 pg (26-32); Mean Platelet Volume 9.8 fL (7.5-11.0); Monocyte (Absolute #) 1.19 x10^3/uL (0.0-1.3); Monocytes % 11.1 % (0.0-12.0); Platelet Count 186 x10^3/uL (150-450); Red Blood Count 5.35 x10^6/uL (4.1-5.6); Red Cell Distribution Width 13.3 % (11.5-14.0); White Blood Count 10.7 x10^3/uL (4.0-10.5)
[2023-03-25 21:18] LABS: Appearance Clear (Clear); Bacteria None Seen /HPF (None Seen); Bilirubin Negative (Negative); Blood Negative (Negative); Epithelial Cells None Seen /HPF (None Seen); Glucose, Urine Negative (Negative); Hyaline Casts NONE SEEN /LPF (0-2); Ketones Negative (Negative); Leukocyte Esterase Negative (Negative); Nitrite Negative (Negative); Ph >=9.0 (4.6-8.0); Protein,Urine Dip 100 (Negative); RBC 0-2 /HPF (0-5); Specific Gravity 1.025 (1.005-1.030); WBC 0-2 /HPF (0-5)
[2023-03-25 21:20] LABS: ADD URINE CULTURE? NO (NO)
[2023-03-25 21:27] LABS: ALBUMIN 4.1 g/dL (3.5-5.0); ANION GAP 12.2 MEQ/L (5-15); BILIRUBIN,TOTAL 0.8 mg/dL (0.2-1.3); Calcium 8.7 mg/dL (8.4-10.2); Creatinine 1 0.83 mg/dL (0.66-1.25); EST GLOMERULAR FILTRATION RATE 107.3 ML/MIN; Potassium 4.3 mmol/L (3.5-5.1); Total Protein 6.7 g/dL (6.3-8.2)
[2023-03-25 21:52] LABS: INFLUENZA A NEGATIVE (NEGATIVE); INFLUENZA B NEGATIVE (NEGATIVE); RESPIRATORY SYNCTIAL VIRUS NEGATIVE (NEGATIVE); SARS-CoV-2 Xpert Express NEGATIVE (NEGATIVE)
--- NOTE | 2023-03-25 23:04 | XRAY ---
CLINICAL HISTORY:upper abd pain COMPARISON:None TECHNIQUE:CT scan of the abdomen and pelvis was performed without IV contrast. Coronal and sagittal reconstructive images were also obtained. FINDINGS: Lung bases: There is a small fat-filled diaphragmatic hernia at the medial aspect of the left hemidiaphragm. Abdomen: The liver is slightly enlarged measuring 18.5 cm craniocaudally. There is diffuse mild hypoattenuation of the parenchyma. A 1.2 cm round, incomplete, peripherally-calcified, isodense nodule is seen at segment /VIII of the right lover lobe. The portal vein, intrahepatic biliary radicals, and the bile ducts are normal. The spleen is enlarged measuring 14.7 cm craniocaudally. Multiple tiny calcifications are scattered in the parenchyma. The pancreas and adrenal glands are unremarkable. The kidneys are normal in size and shape. No cysts, mass, calculi, or hydronephrosis. The gallbladder is absent with surgical clips within the gallbladder fossa. There are two partially calcified round soft tissue densities just inferior to the gallbladder fossa measuring 1.5 cm and 1.7 cm. Multiple diverticula are seen in the ascending, descending, and sigmoid colon. There is minimal fat-stranding around the cecum. There is minimal hypodensity at the region of the ileocecal valve. The appendix is normal. There are multiple prominent mesenteric lymph nodes seen ileocolic chain: For reference, one of the largest measures 1.5 x 1.2 cm. There is no evidence of significant enlargement of the mesenteric or retroperitoneal lymph nodes. Atherosclerotic aorta and some of its branches. There is a bilateral fat-filled inguinal hernia, measuring up to 2.8 cm on the right and 3.6 cm on the left A small fat-filled umbilical hernia is also noted. Pelvis: The urinary bladder is unremarkable. The uterus is normal. The pelvic vasculature is unremarkable. No evidence of pelvic lymphadenopathy. Degenerative changes of the spine are observed. There is mild anterior wedge compression of the lower thoracic spine. There is a bilateral L5 pars interarticularis break with grade 1 anterolisthesis of L5 over S1. IMPRESSION: 1. Colonic diverticulosis. Minimal fat stranding and hazy mesentery surrounding a cecal diverticulum, concerning for possible developing acute diverticulitis. Minimal hypodensity at the region of the ileocecal valve, to consider reactive edema. Suggest follow-up. 2. Mild hepatomegaly with fatty infiltration. 3. A 1.2 cm round, incomplete, peripherally-calcified, isodense nodule at segment /VIII of the right liver lobe. 4. Splenomegaly with multiple tiny calcifications. 5. Surgically absent gallbladder with partially calcified round soft tissue densities just inferior to the gallbladder fossa measuring 1.5 cm and 1.7 cm. These are non-specific and may be post-surgical. 6. Bilateral L5 pars interarticularis break with grade 1 anterolisthesis of L5 over S1. 7. Rest of the findings as detailed above. [facility] ER was called at [phone] at 09:57 PM [employer], 03/25/2023 and the results are verbally communicated with Juan Carlos Mitchell. Electronically Signed by: Paty Trimble MD. (03/25/2023 23:00:31 EST)
[2023-03-25] MEDS ORDERED: Augmentin 875-125 Tablet PO ONE (23:28)
[2023-03-25] MEDS ORDERED: Augmentin 875-125 Tablet ONE (23:29)
[2023-03-25 23:38] VITALS: RESP 18
[2023-03-26 00:06] VITALS: BP 137/84; PULSE 88; TEMP 100.1; O2SAT 97
== END 2023-03-26 00:07 | disposition home or self-care (01) ==
LOC: ED 19:38
DX: K57.92 Diverticulitis of intestine, part unspecified, without perforation or abscess without bleeding (principal); R10.10 Upper abdominal pain, unspecified; R11.0 Nausea; M79.10 Myalgia, unspecified site; R53.83 Other fatigue; R51.9 Headache, unspecified; R50.9 Fever, unspecified; E78.5 Hyperlipidemia, unspecified; Z79.899 Other long term (current) drug therapy; Z28.310 Unvaccinated for COVID-19; Z20.828 Contact with and (suspected) exposure to other viral communicable diseases
CPT/HCPCS: 0241U; 36000; 36415; 74176; 80053; 81001; 83690; 84484; 85025; 96360; 96374; 96375; 99284; J2270; J2405; A9270-GY

== ENCOUNTER 2024-03-17 08:34 | Emergency (ER) | payer MEDICARE ==
[2024-03-17] MEDS ORDERED: Sodium Chloride 0.9% 1000 ML 1,000 ML ONE ×2 (08:47→08:57)
[2024-03-17 08:50] VITALS: TEMP 97.6
[2024-03-17] MEDS ORDERED: Adenocard IV 6 MG/2 ML IV ONE (08:57)
[2024-03-17 09:14] LABS: Absolute Neutrophil Ct (ANC) 4.05 x10^3/uL (1.78-5.38); BASOPHIL % 0.4 % (0.2-1.2); Basophil (Absolute #) 0.03 x10^3/uL (0.01-0.08); Eosinophil % 1.9 % (0.8-7.0); Eosinophil (Absolute #) 0.13 x10^3/uL (0.04-0.54); Hematocrit 50.2 % (40.1-51.0); IMMATURE GRAN # 0.04 x10^3u/L (0.001-0.031); IMMATURE GRAN % 0.6 % (0.001-0.429); Lymphocyte (Absolute #) 1.63 x10^3/uL (1.32-3.57); Lymphocytes % 24.4 % (21.8-53.1); Mean Cell Volume 77.7 fL (79.0-92.2); Mean Corpuscular Hemoglobin 24.8 pg (25.7-32.2); Mean Corpuscular Hgb Concent. 31.9 g/dL (32.3-36.5); Mean Platelet Volume 9.6 fL (9.4-12.4); Monocyte (Absolute #) 0.81 x10^3/uL (0.30-0.82); Monocytes % 12.1 % (5.3-12.2); Neutrophil % 60.6 % (34.0-67.9); Platelet Count 166 x10^3/uL (163-337); Red Blood Count 6.46 x10^6/uL (4.63-6.08); Red Cell Distribution Width 20.7 % (11.6-14.4); White Blood Count 6.7 x10^3/uL (4.23-9.07)
[2024-03-17 09:28] LABS: ALBUMIN 4.3 g/dL (3.5-5.0); ANION GAP 11.6 MEQ/L (5-15); BILIRUBIN,TOTAL 0.9 mg/dL (0.2-1.3); Creatinine 1 0.68 mg/dL (0.66-1.25); EST GLOMERULAR FILTRATION RATE 113.2 ML/MIN; MAGNESIUM 1.8 mg/dL (1.6-2.3); Potassium 3.7 mmol/L (3.5-5.1)
[2024-03-17 10:18] VITALS: BP 155/88; RESP 18
[2024-03-17 10:20] VITALS: O2SAT 98
--- NOTE | 2024-03-17 10:20 | ERPHSYRPT ---
- History of Present Illness Time Seen by Provider: 03/17/24 09:00 Source: patient Exam Limitations: clinical condition Patient Subjective Stated Complaint: Palpitations Triage Nursing Assessment: Patient ambulated back to ED and transferred self to bed. Patient A+O X 3. Patient's skin pink, warm and dry. Patient complains of palpitations and states his heart doctor told him when he starts feeling this way to go to ER to get an EKG. Patient noted to be in SVT. Patient denies pain or discomfort. Patient denies N/V. Timing/Duration: today Severity: mild Associated Symptoms: denies symptoms Allergies/Adverse Reactions: levofloxacin [From Levaquin] Allergy (Verified 03/17/24 08:39) Muscle Aches mold Allergy (Verified 03/17/24 08:39) penicillin G Allergy (Verified 03/17/24 08:39) Hives sulfamethoxazole [From Bactrim] Allergy (Verified 03/17/24 08:39) Rash trimethoprim [From Bactrim] Allergy (Verified 03/17/24 08:39) Rash corn pollen Allergy (Uncoded 03/17/24 08:39) Home Medications: Aspirin EC 81 mg [Ecotrin 81 mg] 81 mg PO DAILY 10/15/20 [History] Azelastine Nasal [Astelin Nasal] 1 ml INTRANASAL BID 10/15/20 [History] Divalproex Sodium ER 250 mg [Depakote EXTENDED RELEASE 250 MG] 250 mg PO BID 10/15/20 [History] Fluticasone Propionate [Flovent Diskus] 50 mcg IH DAILY 10/15/20 [History] Metoprolol Succinate 25 mg Xl* [Toprol-Xl 25MG Tablets] 1 tab PO BID 10/15/20 [History] PANTOPRAZOLE 40 mg Tablet [Protonix 40MG Tablet] 40 mg PO HS 10/15/20 [History] metroNIDAZOLE [Rosadan] 45 gm TP BID 10/15/20 [History] Ascorbic Acid 500 mg [Vitamin C 500 MG] 500 mg PO HS 03/25/23 [History] Famotidine 20 mg PO DAILY 03/25/23 [History] Rosuvastatin Calcium 10 mg PO HS 03/25/23 [History] Hx Tetanus, Diphtheria Vaccination/Date Given: Yes (2019) Hx Influenza Vaccination/Date Given: Yes Hx Pneumococcal Vaccination/Date Given: Yes (unsure of when, but was told was for life) Immunizations Up to Date: Yes Travel Risk - International Travel Have you traveled outside of the country in past 3 weeks: No - Emerging Infectious Disease Are you exhibiting symptoms associated with any current EIDs: No - Review of Systems Constitutional: No Symptoms Eyes: No Symptoms Ears, Nose, & Throat: No Symptoms Respiratory: No Symptoms Cardiac: Palpitations Abdominal/Gastrointestinal: No Symptoms Genitourinary Symptoms: No Symptoms Musculoskeletal: No Symptoms - Past Medical History Pertinent Past Medical History: Yes Neurological History: Migraines ENT History: Other Cardiac History: Arrhythmia Respiratory History: Bronchitis Endocrine Medical History: No Pertinent History Musculoskeletal History: Fractures, Other GI Medical History: Gallbladder Disease History: No Pertinent History Psycho-Social History: No Pertinent History Male Reproductive Disorders: No Pertinent History Other Medical History: HX OF BRONCHITIS - USES INHALER PRN ESPECIALLY IN THE FALL. HX OF FX TRANSVERSE PROCESS L1/L2 FROM A FALL - Past Surgical History Past Surgical History: Yes Neuro Surgical History: No Pertinent History Cardiac: No Pertinent History Respiratory: No Pertinent History Gastrointestinal: Cholecystectomy Genitourinary: No Pertinent History Musculoskeletal: No Pertinent History Male Surgical History: No Pertinent History Other Surgical History: sinus surgery. keloid removed from back - Social History Smoking Status: Never smoker Exposure to second hand smoke: No Drug Use: none Patient Lives Alone: No - Social Determinants of Health Will the patient participate in the screening: Yes Do you worry about a steady place to live?: No Do you have any problems with any of the following?: No known problems In the past 12 months,have you had to go without utilities?: No Transportation Issues: No Has anyone in your support network made you feel unsafe?: No Have you or anyone in your house had to go without enough: No - Nursing Vital Signs Nursing Vital Signs: Initial Vital Signs Temperature 97.6 F 03/17/24 08:41 Pulse Rate 178 H 03/17/24 08:41 Respiratory Rate 20 03/17/24 08:41 Blood Pressure 118/91 03/17/24 08:41 O2 Sat by Pulse Oximetry 100 03/17/24 08:41 Pain Scale Pain Intensity 0 - Physical Exam General Appearance: no apparent distress Eye Exam: PERRL/EOMI Ears, Nose, Throat Exam: normal ENT inspection Respiratory Exam: normal breath sounds Cardiovascular Exam: tachycardia (patient in svt) Gastrointestinal/Abdomen Exam: soft, normal bowel sounds SpO2: 98 - Course EKG Interpreted by Me: ELIDA Ordered Tests: Active Orders 24 hr Category Date Time Status EKG-ER Only STAT Care 03/17/24 08:57 Active IV Insertion STAT Care 03/17/24 08:57 Active CBC W DIFF Stat Lab 03/17/24 09:00 Completed CMP Stat Lab 03/17/24 09:00 Completed MAGNESIUM Stat Lab 03/17/24 09:00 Completed Medication Summary Discontinued Medications Generic Name Dose Route Start Last Admin Trade Name Isaak PRN Reason Stop Dose Admin Adenosine Confirm 03/17/24 08:57 Adenosine 6 Mg/2 Ml Vial Administered 03/17/24 08:58 Dose 18 mg IV .STK-MED ONE Sodium Chloride Confirm 03/17/24 08:47 Sodium Chloride 0.9% 1000 Ml Administered 03/17/24 08:48 Dose 1,000 mls @ ud .ROUTE .STK-MED ONE Sodium Chloride Confirm 03/17/24 08:57 Sodium Chloride 0.9% 1000 Ml Administered 03/17/24 08:58 Dose 1,000 mls @ ud .ROUTE .STK-MED ONE Lab/Rad Data: Laboratory Result Diagrams 03/17/24 09:00 03/17/24 09:00 Laboratory Results 03/17/24 03/17/24 Range/Units 09:00 09:00 WBC 6.7 (4.23-9.07) x10^3/uL RBC 6.46 H (4.63-6.08) x10^6/uL Hgb 16.0 (13.7-17.5) g/dL Hct 50.2 (40.1-51.0) % MCV 77.7 L (79.0-92.2) fL MCH 24.8 L (25.7-32.2) pg MCHC 31.9 L (32.3-36.5) g/dL RDW 20.7 H (11.6-14.4) % Plt Count 166 (163-337) x10^3/uL MPV 9.6 (9.4-12.4) fL Gran % 60.6 (34.0-67.9) % Immature Gran % (Auto) 0.6 H (0.001-0.429) % Nucleat RBC Rel Count 0.0 (0.00-0.2) % Eos # (Auto) 0.13 (0.04-0.54) x10^3/uL Immature Gran # (Auto) 0.04 H (0.001-0.031) x10^3u/L Absolute Lymphs (auto) 1.63 (1.32-3.57) x10^3/uL Absolute Monos (auto) 0.81 (0.30-0.82) x10^3/uL Absolute Nucleated RBC 0.00 (0.00-0.012) x10^3u/L Lymphocytes % 24.4 (21.8-53.1) % Monocytes % 12.1 (5.3-12.2) % Eosinophils % 1.9 (0.8-7.0) % Basophils % 0.4 (0.2-1.2) % Absolute Granulocytes 4.05 (1.78-5.38) x10^3/uL Basophils # 0.03 (0.01-0.08) x10^3/uL Sodium 140 (135-145) mmol/L Potassium 3.7 (3.5-5.1) mmol/L Chloride 103 (98-107) mmol/L Carbon Dioxide 29 (22-30) mmol/L Anion Gap 11.6 (5-15) MEQ/L BUN 6 L (9-20) mg/dL Creatinine 0.68 (0.66-1.25) mg/dL Estimated GFR 113.2 ML/MIN Glucose 92 (74-106) mg/dL Calcium 9.0 (8.4-10.2) mg/dL Magnesium 1.8 (1.6-2.3) mg/dL Total Bilirubin 0.90 (0.2-1.3) mg/dL AST 43 (17-59) U/L ALT 32 (0-50) U/L Alkaline Phosphatase 74 (38-126) U/L Serum Total Protein 7.0 (6.3-8.2) g/dL Albumin 4.3 (3.5-5.0) g/dL - Progress Progress Note: patient was seen and evaluated and treated with adenosine - the intial dose did not help the patient he then required a second dose 03/17/24 09:15 1015 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
[2024-03-17 10:22] VITALS: PULSE 80
== END 2024-03-17 10:28 | disposition home or self-care (01) ==
LOC: ED 08:34
DX: R00.2 Palpitations (principal); I47.10 Supraventricular tachycardia, unspecified
CPT/HCPCS: 36415; 80053; 83735; 85025; 93005; 96374; 99284; 99291; J0153

== ENCOUNTER 2024-05-17 18:31 | Emergency (ER) | payer MEDICARE ==
--- NOTE | 2024-05-17 19:15 | ERPHSYRPT ---
- History of Present Illness Time Seen by Provider: 05/17/24 19:15 Historian: patient, family Exam Limitations: no limitations Physician History: Pt had onset of vomiting and abd cramping this afternoon and came to ER. No hx trauma. No prior episodes, Has GB out already. No CP or SObreath but pain is sometimes epigastric. some mid abd tenderness without peritoneal signs or masses. Chest clear Ht reg without M. Discussed with pt and available family risks and benefits of testing/Tx including CBC, CMP, EKG, Trop, UA, Amylase, Lipase, CT ABD , swabs for Covid, RSV, Flu and , pain med ( [place]) Zofran, and they wish to proceed so these are ordered. Results discussed with pt and available family. Timing/Duration: today Activities at Onset: none Quality: cramping, sharpness Abdominal Pain Onset Location: epigastric, generalized abdomen Pain Radiation: epigastric Severity of Pain-Max: moderate Modifying Factors: Improves With: nothing Associated Symptoms: nausea, vomiting Previous symptoms: no prior history Allergies/Adverse Reactions: levofloxacin [From Levaquin] Allergy (Verified 05/17/24 19:27) Muscle Aches mold Allergy (Verified 05/17/24 19:27) penicillin G Allergy (Verified 05/17/24 19:27) Hives sulfamethoxazole [From Bactrim] Allergy (Verified 05/17/24 19:27) Rash trimethoprim [From Bactrim] Allergy (Verified 05/17/24 19:27) Rash corn pollen Allergy (Uncoded 05/17/24 19:27) Home Medications: Aspirin EC 81 mg [Ecotrin 81 mg] 81 mg PO DAILY 10/15/20 [History] Azelastine Nasal [Astelin Nasal] 1 ml INTRANASAL BID 10/15/20 [History] Divalproex Sodium ER 250 mg [Depakote EXTENDED RELEASE 250 MG] 250 mg PO BID 10/15/20 [History] Fluticasone Propionate [Flovent Diskus] 50 mcg IH DAILY 10/15/20 [History] Metoprolol Succinate 25 mg Xl* [Toprol-Xl 25MG Tablets] 1 tab PO BID 10/15/20 [History] PANTOPRAZOLE 40 mg Tablet [Protonix 40MG Tablet] 40 mg PO HS 10/15/20 [History] metroNIDAZOLE [Rosadan] 45 gm TP BID 10/15/20 [History] Ascorbic Acid 500 mg [Vitamin C 500 MG] 500 mg PO HS 03/25/23 [History] Famotidine 20 mg PO DAILY 03/25/23 [History] Rosuvastatin Calcium 10 mg PO HS 03/25/23 [History] Hx Tetanus, Diphtheria Vaccination/Date Given: Yes (2019) Hx Influenza Vaccination/Date Given: Yes Hx Pneumococcal Vaccination/Date Given: Yes (unsure of when, but was told was for life) Travel Risk - Emerging Infectious Disease Are you exhibiting symptoms associated with any current EIDs: No - Review of Systems Constitutional: No Fever, No Chills Eyes: No Symptoms Ears, Nose, & Throat: No Symptoms Respiratory: No Cough, No Dyspnea Cardiac: No Chest Pain, No Edema, No Syncope Abdominal/Gastrointestinal: Abdominal Pain, Nausea, Vomiting, No Diarrhea Genitourinary Symptoms: No Dysuria Musculoskeletal: No Back Pain, No Neck Pain Skin: No Rash Neurological: No Dizziness, No Focal Weakness, No Sensory Changes Psychological: No Symptoms Endocrine: No Symptoms Hematologic/Lymphatic: No Symptoms Immunological/Allergic: No Symptoms All Other Systems: Reviewed and Negative - Past Medical History Pertinent Past Medical History: Yes Neurological History: Migraines ENT History: Other Cardiac History: Arrhythmia Respiratory History: Bronchitis Endocrine Medical History: No Pertinent History Musculoskeletal History: Fractures, Other GI Medical History: Gallbladder Disease History: No Pertinent History Psycho-Social History: No Pertinent History Male Reproductive Disorders: No Pertinent History Other Medical History: HX OF BRONCHITIS - USES INHALER PRN ESPECIALLY IN THE FALL. HX OF FX TRANSVERSE PROCESS L1/L2 FROM A FALL - Past Surgical History Past Surgical History: Yes Neuro Surgical History: No Pertinent History Cardiac: No Pertinent History Respiratory: No Pertinent History Gastrointestinal: Cholecystectomy Genitourinary: No Pertinent History Musculoskeletal: No Pertinent History Male Surgical History: No Pertinent History Other Surgical History: sinus surgery. keloid removed from back - Social History Smoking Status: Never smoker Exposure to second hand smoke: No Drug Use: none Patient Lives Alone: No - Social Determinants of Health Will the patient participate in the screening: Yes Do you worry about a steady place to live?: No In the past 12 months,have you had to go without utilities?: No Transportation Issues: No Has anyone in your support network made you feel unsafe?: No Have you or anyone in your house had to go without enough: No - Nursing Vital Signs Nursing Vital Signs: Initial Vital Signs O2 Sat by Pulse Oximetry 94 L 05/17/24 19:13 Pain Scale Pain Intensity 8 - Physical Exam General Appearance: no apparent distress, alert Eye Exam: PERRL/EOMI, eyes nml inspection Ears, Nose, Throat Exam: normal ENT inspection, pharynx normal, moist mucous membranes Neck Exam: normal inspection, non-tender, supple, full range of motion Respiratory Exam: normal breath sounds, lungs clear, No respiratory distress Cardiovascular Exam: regular rate/rhythm, normal heart sounds Gastrointestinal/Abdomen Exam: soft, tenderness, No distention, No mass, No guarding, No pulsatile mass, No rebound Rectal Exam: deferred Back Exam: normal inspection, normal range of motion, No CVA tenderness, No vertebral tenderness Extremity Exam: normal inspection, normal range of motion, pelvis stable Neurologic Exam: alert, oriented x 3, cooperative, normal mood/affect, nml cerebellar function, sensation nml, No motor deficits Skin Exam: normal color, warm, dry SpO2 Interpretation: normal SpO2: 96 O2 Delivery: Room Air - Course Nursing assessment & vital signs reviewed: Yes EKG Interpreted by Me: Sinus Rhythm, Left [place] Deviation, Non-specific ST Changes, Other (LVH) - CT Exams Abdomen/Pelvis CT Interpretation: Other (diverticula liver nodule) Ordered Tests: Active Orders 24 hr Category Date Time Status EKG-ER Only STAT Care 05/17/24 19:39 Active IV Insertion STAT Care 05/17/24 19:39 Active ABDOMEN AND PELVIS W/0 CONTRAS [CT] Stat Exams 05/17/24 19:40 Completed AMYLASE Stat Lab 05/17/24 20:16 Completed CBC W DIFF Stat Lab 05/17/24 20:16 Completed CMP Stat Lab 05/17/24 20:16 Completed LIPASE Stat Lab 05/17/24 20:16 Completed Lactic Acid Stat Lab 05/17/24 20:14 Completed TROPONIN Q4H Lab 05/17/24 20:16 Completed TROPONIN Q4H Lab 05/17/24 23:45 Ordered TROPONIN Q4H Lab 05/18/24 03:45 Ordered UA W/RFX UR CULTURE Stat Lab 05/17/24 20:10 Completed Medication Summary Discontinued Medications Generic Name Dose Route Start Last Admin Trade Name Freq PRN Reason Stop Dose Admin Morphine Sulfate 4 mg 05/17/24 19:39 05/17/24 20:07 Morphine Sulfate 4 Mg/Ml Injection IV 05/17/24 19:40 4 mg STAT ONE Administration Morphine Sulfate Confirm 05/17/24 20:04 Morphine Sulfate 4 Mg/Ml Injection Administered 05/17/24 20:05 Dose 4 mg .ROUTE .STK-MED ONE Ondansetron HCl 4 mg 05/17/24 19:39 05/17/24 20:06 Ondansetron Hcl 4 Mg/2 Ml Vial IV 05/17/24 19:40 4 mg STAT ONE Administration Ondansetron HCl Confirm 05/17/24 20:03 Ondansetron Hcl 4 Mg/2 Ml Vial Administered 05/17/24 20:04 Dose 4 mg .ROUTE .STK-MED ONE Ondansetron HCl 4 mg 05/17/24 21:34 05/17/24 21:39 Ondansetron Hcl 4 Mg/2 Ml Vial IV 05/17/24 21:35 4 mg STAT ONE Administration Ondansetron HCl Confirm 05/17/24 21:36 Ondansetron Hcl 4 Mg/2 Ml Vial Administered 05/17/24 21:37 Dose 4 mg .ROUTE .STK-MED ONE Lab/Rad Data: Laboratory Result Diagrams 05/17/24 20:16 05/17/24 20:16 Laboratory Results 05/17/24 05/17/24 05/17/24 Range/Units 20:16 20:16 20:16 WBC 9.2 H (4.23-9.07) x10^3/uL RBC 6.84 H (4.63-6.08) x10^6/uL Hgb 18.9 H (13.7-17.5) g/dL Hct 55.7 H (40.1-51.0) % MCV 81.4 (79.0-92.2) fL MCH 27.6 (25.7-32.2) pg MCHC 33.9 (32.3-36.5) g/dL RDW 14.7 H (11.6-14.4) % Plt Count 155 L (163-337) x10^3/uL MPV 9.6 (9.4-12.4) fL Gran % 87.5 H (34.0-67.9) % Immature Gran % (Auto) 0.3 (0.001-0.429) % Nucleat RBC Rel Count 0.0 (0.00-0.2) % Eos # (Auto) 0.04 (0.04-0.54) x10^3/uL Immature Gran # (Auto) 0.03 (0.001-0.031) x10^3u/L Absolute Lymphs (auto) 0.41 L (1.32-3.57) x10^3/uL Absolute Monos (auto) 0.65 (0.30-0.82) x10^3/uL Absolute Nucleated RBC 0.00 (0.00-0.012) x10^3u/L Lymphocytes % 4.5 L (21.8-53.1) % Monocytes % 7.1 (5.3-12.2) % Eosinophils % 0.4 L (0.8-7.0) % Basophils % 0.2 (0.2-1.2) % Absolute Granulocytes 8.02 H (1.78-5.38) x10^3/uL Basophils # 0.02 (0.01-0.08) x10^3/uL Sodium 142 (135-145) mmol/L Potassium 4.2 (3.5-5.1) mmol/L Chloride 100 (98-107) mmol/L Carbon Dioxide 30 (22-30) mmol/L Anion Gap 16.1 H (5-15) MEQ/L BUN 18 (9-20) mg/dL Creatinine 0.76 (0.66-1.25) mg/dL Estimated GFR 109.5 ML/MIN Glucose 102 (74-106) mg/dL Lactic Acid (0.4-2.0) Calcium 9.4 (8.4-10.2) mg/dL Total Bilirubin 1.40 H (0.2-1.3) mg/dL AST 46 (17-59) U/L ALT 32 (0-50) U/L Alkaline Phosphatase 87 (38-126) U/L Troponin I < 0.012 (0.000-0.033) ng/mL Serum Total Protein 8.1 (6.3-8.2) g/dL Albumin 5.5 H (3.5-5.0) g/dL Amylase 71 (30-110) U/L Lipase 47 (23-300) U/L Urine Color (Yellow) Urine Appearance (Clear) Urine pH (4.6-8.0) Ur Specific [place] (1.005-1.030) Urine Protein (Negative) Urine Glucose (UA) (Negative) mg/dL Urine Ketones (Negative) Urine Blood (Negative) Urine Nitrite (Negative) Urine Bilirubin (Negative) Urine Urobilinogen (0.2) mg/dL Ur Leukocyte Esterase (Negative) U Hyaline Cast (Auto) (0-2) /LPF Urine Microscopic RBC (0-5) /HPF Urine Microscopic WBC (0-5) /HPF Ur Epithelial Cells (None Seen) /HPF Urine Bacteria (None Seen) /HPF Urine Culture Reflexed (NO) Influenza Type A Ag (NEGATIVE) Influenza Type B Ag (NEGATIVE) RSV (PCR) (NEGATIVE) SARS-CoV-2 (PCR) (NEGATIVE) 05/17/24 05/17/24 05/17/24 Range/Units 20:15 20:14 20:10 WBC (4.23-9.07) x10^3/uL RBC (4.63-6.08) x10^6/uL Hgb (13.7-17.5) g/dL Hct (40.1-51.0) % MCV (79.0-92.2) fL MCH (25.7-32.2) pg MCHC (32.3-36.5) g/dL RDW (11.6-14.4) % Plt Count (163-337) x10^3/uL MPV (9.4-12.4) fL Gran % (34.0-67.9) % Immature Gran % (Auto) (0.001-0.429) % Nucleat RBC Rel Count (0.00-0.2) % Eos # (Auto) (0.04-0.54) x10^3/uL Immature Gran # (Auto) (0.001-0.031) x10^3u/L Absolute Lymphs (auto) (1.32-3.57) x10^3/uL Absolute Monos (auto) (0.30-0.82) x10^3/uL Absolute Nucleated RBC (0.00-0.012) x10^3u/L Lymphocytes % (21.8-53.1) % Monocytes % (5.3-12.2) % Eosinophils % (0.8-7.0) % Basophils % (0.2-1.2) % Absolute Granulocytes (1.78-5.38) x10^3/uL Basophils # (0.01-0.08) x10^3/uL Sodium (135-145) mmol/L Potassium (3.5-5.1) mmol/L Chloride (98-107) mmol/L Carbon Dioxide (22-30) mmol/L Anion Gap (5-15) MEQ/L BUN (9-20) mg/dL Creatinine (0.66-1.25) mg/dL Estimated GFR ML/MIN Glucose (74-106) mg/dL Lactic Acid 1.3 (0.4-2.0) Calcium (8.4-10.2) mg/dL Total Bilirubin (0.2-1.3) mg/dL AST (17-59) U/L ALT (0-50) U/L Alkaline Phosphatase (38-126) U/L Troponin I (0.000-0.033) ng/mL Serum Total Protein (6.3-8.2) g/dL Albumin (3.5-5.0) g/dL Amylase (30-110) U/L Lipase (23-300) U/L Urine Color Dark Yellow (Yellow) Urine Appearance Clear (Clear) Urine pH 5.0 (4.6-8.0) Ur Specific [place] >=1.030 A (1.005-1.030) Urine Protein 300 A (Negative) Urine Glucose (UA) Negative (Negative) mg/dL Urine Ketones 15 A (Negative) Urine Blood Negative (Negative) Urine Nitrite Negative (Negative) Urine Bilirubin Negative (Negative) Urine Urobilinogen 0.2 (0.2) mg/dL Ur Leukocyte Esterase Negative (Negative) U Hyaline Cast (Auto) 3-5 A (0-2) /LPF Urine Microscopic RBC 3-5 (0-5) /HPF Urine Microscopic WBC 0-2 (0-5) /HPF Ur Epithelial Cells Rare (None Seen) /HPF Urine Bacteria None Seen (None Seen) /HPF Urine Culture Reflexed NO (NO) Influenza Type A Ag NEGATIVE (NEGATIVE) Influenza Type B Ag NEGATIVE (NEGATIVE) RSV (PCR) NEGATIVE (NEGATIVE) SARS-CoV-2 (PCR) NEGATIVE (NEGATIVE) - Progress Progress: improved, re-examined Progress Note: 05/17/24 23:15 I explained to the pt that we have not determined the cause for his pain and that additional pathology could be developing undetected - he is comfortable now and wishes DC with outpt f/u without further w/u here or admission and he has the capacity to make this choice. 05/17/24 23:37 we decided to recall the cipro since he has had an allergy to levoquin and the nurse left a message at pharmacy to cancell and we told the pt not to take it and look for it just in case. Counseled pt/family regarding: lab results, diagnosis, need for follow-up, rad results Medical Desision Making - Independent Historian Additional History obtained from: Family - Discussion of managment Reviewed:: Test results, Need for additional workup Agreed on:: Treatment plan, need for follow-up - Diagnostic Testing Diagnostic test were ordered, analyzed, and reviewed by me: Yes Radiological Interpretation: Teleradiologist Report - Risk of complications The pt has a mod risk of morbidity or mortality based on: Need for prescription drug management The pt has a high risk of morbidity or mortality based on: Decision regarding hospitilization or escalation of hosp level of care - Departure Departure Disposition: Home Clinical Impression: Abdominal pain, Diverticulosis, Liver nodule Condition: Good Critical Care Time: No Referrals: ALBA FLOWERS MD [Primary Care Provider] - Follow up/PCP as directed Instructions: Abdominal pain in adults - Discharge instructions, Diverticulosis Additional Instructions: although we did not find an exact cause for your pain, and it could be early infection such as in the diverticula- which we are treating, you should followup with your DrMeliton since there could be other developing causes that we have not yet detected. There is a liver nodule to also see your Dr Meliton to check out. We have found that you have allergy to a related medicine to the cipro and so we have recalled it from the pharmacy but want you to be aware not to take it, in case it comes through. Just take the flagyl antibiotic for now. Prescriptions: Ondansetron ODT 4 MG [Zofran Odt 4 mg] 4 mg PO Q6HPRN PRN #10 tab PRN Reason: Nausea Ciprofloxacin [Cipro 500 MG] 500 mg PO BID #20 tablet Metronidazole 500 mg [Flagyl 500 MG] 500 mg PO TID #30 tablet
[2024-05-17 19:36] VITALS: TEMP 98.4
[2024-05-17] MEDS ORDERED: Zofran 4 MG/2 ML VIAL ONE ×2 (20:03→21:36)
[2024-05-17] MEDS ORDERED: MORPHINE SULFATE 4 MG INJ ONE (20:04)
[2024-05-17] MEDS: Zofran 4 MG/2 ML VIAL IV ONE ×2 (20:06→21:39)
[2024-05-17] MEDS: MORPHINE SULFATE 4 MG INJ IV ONE (20:07)
[2024-05-17 20:18] LABS: Absolute Neutrophil Ct (ANC) 8.02 x10^3/uL (1.78-5.38); BASOPHIL % 0.2 % (0.2-1.2); Basophil (Absolute #) 0.02 x10^3/uL (0.01-0.08); Eosinophil % 0.4 % (0.8-7.0); Eosinophil (Absolute #) 0.04 x10^3/uL (0.04-0.54); Hematocrit 55.7 % (40.1-51.0); Hemoglobin 18.9 g/dL (13.7-17.5); IMMATURE GRAN # 0.03 x10^3u/L (0.001-0.031); IMMATURE GRAN % 0.3 % (0.001-0.429); Lymphocyte (Absolute #) 0.41 x10^3/uL (1.32-3.57); Lymphocytes % 4.5 % (21.8-53.1); Mean Cell Volume 81.4 fL (79.0-92.2); Mean Corpuscular Hemoglobin 27.6 pg (25.7-32.2); Mean Corpuscular Hgb Concent. 33.9 g/dL (32.3-36.5); Mean Platelet Volume 9.6 fL (9.4-12.4); Monocyte (Absolute #) 0.65 x10^3/uL (0.30-0.82); Monocytes % 7.1 % (5.3-12.2); Neutrophil % 87.5 % (34.0-67.9); Platelet Count 155 x10^3/uL (163-337); Red Blood Count 6.84 x10^6/uL (4.63-6.08); Red Cell Distribution Width 14.7 % (11.6-14.4); White Blood Count 9.2 x10^3/uL (4.23-9.07)
[2024-05-17 20:35] LABS: ALBUMIN 5.5 g/dL (3.5-5.0); ANION GAP 16.1 MEQ/L (5-15); BILIRUBIN,TOTAL 1.4 mg/dL (0.2-1.3); Calcium 9.4 mg/dL (8.4-10.2); Creatinine 1 0.76 mg/dL (0.66-1.25); EST GLOMERULAR FILTRATION RATE 109.5 ML/MIN; Potassium 4.2 mmol/L (3.5-5.1); Total Protein 8.1 g/dL (6.3-8.2)
[2024-05-17 20:54] LABS: Appearance Clear (Clear); Bacteria None Seen /HPF (None Seen); Bilirubin Negative (Negative); Blood Negative (Negative); Epithelial Cells Rare /HPF (None Seen); Glucose, Urine Negative (Negative); Ketones 15 (Negative); Leukocyte Esterase Negative (Negative); Nitrite Negative (Negative); Protein,Urine Dip 300 (Negative); Specific Gravity >=1.030 (1.005-1.030); Urobilinogen 0.2 mg/dL (0.2); WBC 0-2 /HPF (0-5)
[2024-05-17 21:01] LABS: INFLUENZA A NEGATIVE (NEGATIVE); INFLUENZA B NEGATIVE (NEGATIVE); RESPIRATORY SYNCTIAL VIRUS NEGATIVE (NEGATIVE); SARS-CoV-2 Xpert Express NEGATIVE (NEGATIVE)
[2024-05-17 21:06] VITALS: O2SAT 96
--- NOTE | 2024-05-17 22:31 | XRAY ---
CLINICAL HISTORY: abd pain COMPARISON: Comparison is made with prior CT abdomen and pelvis dated 03/25/2023 TECHNIQUE: Non-contrast CT of the abdomen and pelvis was performed, with the following protocol: axial images, and reconstructed coronal and sagittal images. One of the following dose reduction techniques was utilized for this exam: Automated exposure control, adjustment of the mA and/or kV according to patient size, and use of iterative reconstruction. DLP : 996.04 mGy-cm, CTDI : 17.11 mGy FINDINGS: Abdomen: Liver: Normal in size and shape, with homogenous low density. A stable small round peripherally-calcified nodule seen at segment /VIII of the right liver lobe measuring 12 mm. Still noted tiny 2 mm hypodense focus at hepatic dome, mostly cyst. Gallbladder and Biliary System: The gallbladder is surgically removed. Again seen marginally calcified round soft tissue densities just inferior to the gallbladder fossa measuring 1.5 cm and 1.7 cm, unchanged. Pancreas: Pancreatic head, body, and tail are visualized and appear normal in size and density. No pancreatic masses or calcifications were noted. Spleen: Enlarged size with calcific foci. Kidneys and Adrenal Glands: Both kidneys are normal in size, shape, and position. Cortical thickness is within normal limits. No renal calculi or hydronephrosis. Adrenal glands are unremarkable. Abdominal Aorta and Vessels: The abdominal aorta and major branches are average caliber with no aneurysms. Mild atherosclerotic wall changes. Pelvis: Urinary Bladder: Normal in contour and wall thickness. No intraluminal lesions. Prostate: Normal in size and contour. No masses or abnormal thickening. Seminal Vesicles: Normal appearance without abnormal enlargement or mass. Peritoneal and Retroperitoneal Structures: No free fluid or abnormal fluid collections were identified within the abdomen or pelvis. Bowel: The visualized bowel loops are normal in caliber and appearance. No evidence of bowel obstruction or wall thickening. Stable tiny air-filled diverticulae seen in the ascending, descending, and sigmoid colon. Resolved pericecal fat-stranding and minimal hypodensity at the region of the ileocecal valve. Regression of the previously noted multiple prominent mesenteric lymph nodes. Stable few small calcified ones. Bones and Soft Tissues: Pelvic bones and soft tissues are unremarkable. No fractures or abnormal masses were identified. Degenerative changes of the spine are noted. Stable is mild anterior height reduction of the lower thoracic vertebral bodies. Bilateral L5 pars interarticularis breaks with grade 1 anterolisthesis of L5 over S1, unchanged. Stable bilateral fat-containing inguinal hernia, measuring up to 2.8 cm on the right and 3.6 cm on the left as well as small fat-filled umbilical hernia. Lung bases: Stable small fat-containing diaphragmatic hernia at the medial aspect of the left hemidiaphragm. IMPRESSION: 1. No acute intraabdominal pathology. 2. Few tiny colonic divericulae again seen with no diverticulitis. Resolution of the previously noted subtle inflammatory changes. 3. Fatty liver with stable 1.2 cm peripherally-calcified nodule at segment /VIII of the right lobe, unchanged, together with calcified nodules caudal to GB bed and small calcified mesenetric lymph nodes; old healed granulomas. 4. Splenomegaly with tiny calcifications; unchanged. 5. Bilateral L5 pars interarticularis break with grade 1 anterolisthesis of L5 over S1, unchanged. Electronically Signed by: Paty Trimble MD. (05/17/2024 22:27:28 EST)
[2024-05-17 23:44] VITALS: BP 156/95; PULSE 90; RESP 18
[2024-05-17] MEDS ORDERED: ZOFRAN ODT 4 MG ONE (23:56)
[2024-05-17] MEDS ORDERED: Flagyl 500 MG ONE (23:56)
[2024-05-18] MEDS: ZOFRAN ODT 4 MG PO ONE
[2024-05-18] MEDS: Flagyl 500 MG PO ONE (00:04)
[2024-05-18] MEDS ORDERED: Cipro 500 MG PO SCH (10:00)
== END 2024-05-18 00:05 | disposition home or self-care (01) ==
LOC: ED 18:31
DX: R10.9 Unspecified abdominal pain (principal); K57.90 Diverticulosis of intestine, part unspecified, without perforation or abscess without bleeding; R93.2 Abnormal findings on diagnostic imaging of liver and biliary tract; R11.2 Nausea with vomiting, unspecified; Z79.899 Other long term (current) drug therapy
CPT/HCPCS: 0241U; 36415; 74176; 80053; 81001; 82150; 83605; 83690; 84484; 85025; 93005; 96374; 96375; 96376; 99285; 99284; J2270; J2405; Q0162; A9270-GY

== ENCOUNTER 2024-07-31 22:11 | Emergency (ER) | payer MEDICARE ==
[2024-07-31 22:19] VITALS: RESP 18; TEMP 98
--- NOTE | 2024-07-31 22:41 | ERPHSYRPT ---
- History of Present Illness Time Seen by Provider: 07/31/24 22:21 Source: patient Exam Limitations: no limitations Patient Subjective Stated Complaint: had ablation today and pt is concerned because there's some blood on one of the groin dressings and he's worried that it's bleeding. Triage Nursing Assessment: Pt ambulated into ER without diff. Pt c/o rt groin site bleeding. Pt had heart ablation done today at [facility] by Dr. Smith. Pt has small amount of blood noted on dressing to rt groin and left groin dressing is c,d,i. After removing rt groin dressing, no active bleeding noted from that site. We will replace a dressing to rt groin site and monitor pt x1 hour to monitor for any bleeding at that site. Physician History: 49 years old with history of atrial fibrillation with ablation through right groin by Dr. Landaverde at [facility] presented in the ER for wound check as he noticed his dressing was soaked in blood. This was the dressing applied at discharge from [employer]. Patient reports minimal discomfort in the right groin. Patient has moderately soaked dressing with dried blood. No active bleeding spurting or oozing noticed upon removal of dressing. Patient is observed in the ER for almost an hour with new dressing applied and no rebleeding noticed. 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 Discussed signs symptoms of worsening needing return to ER which he seems understanding. Stable for discharge. Allergies/Adverse Reactions: levofloxacin [From Levaquin] Allergy (Verified 07/31/24 22:28) Muscle Aches mold Allergy (Verified 07/31/24 22:28) penicillin G Allergy (Verified 07/31/24 22:28) Hives sulfamethoxazole [From Bactrim] Allergy (Verified 07/31/24 22:28) Rash trimethoprim [From Bactrim] Allergy (Verified 07/31/24 22:28) Rash corn pollen Allergy (Uncoded 07/31/24 22:28) Home Medications: Aspirin EC 81 mg [Ecotrin 81 mg] 81 mg PO DAILY 10/15/20 [History] Azelastine Nasal [Astelin Nasal] 1 ml INTRANASAL BID 10/15/20 [History] Divalproex Sodium ER 250 mg [Depakote EXTENDED RELEASE 250 MG] 250 mg PO BID 10/15/20 [History] Fluticasone Propionate [Flovent Diskus] 50 mcg IH DAILY 10/15/20 [History] Metoprolol Succinate 25 mg Xl* [Toprol-Xl 25MG Tablets] 1 tab PO BID 10/15/20 [History] PANTOPRAZOLE 40 mg Tablet [Protonix 40MG Tablet] 40 mg PO HS 10/15/20 [History] metroNIDAZOLE [Rosadan] 45 gm TP BID 10/15/20 [History] Ascorbic Acid 500 mg [Vitamin C 500 MG] 500 mg PO HS 03/25/23 [History] Famotidine 20 mg PO DAILY 03/25/23 [History] Rosuvastatin Calcium 10 mg PO HS 03/25/23 [History] Hx Tetanus, Diphtheria Vaccination/Date Given: Yes Hx Influenza Vaccination/Date Given: Yes Hx Pneumococcal Vaccination/Date Given: Yes Travel Risk - International Travel Have you traveled outside of the country in past 3 weeks: No - Emerging Infectious Disease Are you exhibiting symptoms associated with any current EIDs: No Symptoms: Abdominal Pain, Vomitting - Review of Systems Constitutional: No Symptoms Ears, Nose, & Throat: No Symptoms Respiratory: No Symptoms Cardiac: No Symptoms Abdominal/Gastrointestinal: No Symptoms Genitourinary Symptoms: No Symptoms Musculoskeletal: Joint Redness Neurological: No Symptoms Endocrine: No Symptoms - Past Medical History Pertinent Past Medical History: Yes Neurological History: Migraines ENT History: Other Cardiac History: Arrhythmia Respiratory History: Bronchitis Endocrine Medical History: No Pertinent History Musculoskeletal History: Fractures, Other GI Medical History: Gallbladder Disease History: No Pertinent History Psycho-Social History: No Pertinent History Male Reproductive Disorders: No Pertinent History Other Medical History: HX OF BRONCHITIS - USES INHALER PRN ESPECIALLY IN THE FALL. HX OF FX TRANSVERSE PROCESS L1/L2 FROM A FALL - Past Surgical History Past Surgical History: Yes Neuro Surgical History: No Pertinent History Cardiac: Other Respiratory: No Pertinent History Gastrointestinal: Cholecystectomy Genitourinary: No Pertinent History Musculoskeletal: No Pertinent History Male Surgical History: No Pertinent History Other Surgical History: sinus surgery. keloid removed from back. heart ablation - Social History Smoking Status: Never smoker Exposure to second hand smoke: Yes Drug Use: none - Social Determinants of Health Will the patient participate in the screening: Yes Do you worry about a steady place to live?: No Do you have any problems with any of the following?: No known problems In the past 12 months,have you had to go without utilities?: No Transportation Issues: No Has anyone in your support network made you feel unsafe?: No Have you or anyone in your house had to go w/o enough food: No - Nursing Vital Signs Nursing Vital Signs: Initial Vital Signs Temperature 98.0 F 07/31/24 22:17 Pulse Rate 81 07/31/24 22:17 Respiratory Rate 18 07/31/24 22:17 Blood Pressure 169/93 07/31/24 22:17 O2 Sat by Pulse Oximetry 100 07/31/24 22:17 Pain Scale Pain Intensity 1 - Physical Exam General Appearance: no apparent distress Neck Exam: normal inspection, full range of motion Respiratory Exam: normal breath sounds, lungs clear Cardiovascular Exam: regular rate/rhythm, normal heart sounds Male Genitalia Exam: other (Right femoral area dressing with no active bleeding or spurting. Area is dry. mild dried blood.) Back Exam: normal inspection, normal range of motion Extremity Exam: normal inspection, normal range of motion Neurologic Exam: alert, oriented x 3, cooperative Skin Exam: normal color SpO2 Interpretation: normal SpO2: 100 O2 Delivery: Room Air - Progress Progress: improved Progress Note: 07/31/24 23:39 49 years old with history of atrial fibrillation with ablation through right groin by Dr. Landaverde at [facility] presented in the ER for wound check as he noticed his dressing was soaked in blood. This was the dressing applied at discharge from [employer] [facility]. Patient reports minimal discomfort in the right groin. Patient has moderately soaked dressing with dried blood. No active bleeding spurting or oozing noticed upon removal of dressing. No swelling or pulsatile mass noticed/felt. Patient is observed in the ER for almost an hour with new dressing applied and no rebleeding noticed. 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 Discussed signs symptoms of worsening needing return to ER which he seems understanding. Stable for discharge. Counseled pt/family regarding: diagnosis, need for follow-up - Departure Departure Disposition: Home Clinical Impression: Encounter for postoperative wound check Condition: Stable Critical Care Time: No Referrals: ALBA FLOWERS MD [Primary Care Provider, [facility]] - Follow up with PCP 1 day Instructions: Wound Care (DC) Additional Instructions: Keep it clean and dry. Follow-up with your engineering supplies sales for reevaluation. Return to ER for increasing pain swelling, bleeding etc.
[2024-07-31 23:41] VITALS: BP 147/89; PULSE 62; O2SAT 97
== END 2024-07-31 23:46 | disposition home or self-care (01) ==
LOC: ED 22:11
DX: Z48.01 Encounter for change or removal of surgical wound dressing (principal); Z79.899 Other long term (current) drug therapy
CPT/HCPCS: 99282

== ENCOUNTER 2025-01-09 06:08 | Day surgery (SDC) | payer MEDICARE ==
[2025-01-09 06:57] VITALS: TEMP 97
[2025-01-09] MEDS: Lactated Ringers 1,000 ML IV ONE (07:38)
[2025-01-09] MEDS ORDERED: propofoL IV ONE ×2 (07:49→08:02)
[2025-01-09] MEDS ORDERED: ALBUTEROL/Proair Hfa MDI IH ONE (08:23)
[2025-01-09 08:46] VITALS: RESP 16
[2025-01-09 09:02] VITALS: BP 144/88; PULSE 58; O2SAT 100
--- NOTE | 2025-01-12 08:37 | OP ---
SURGERY DATE/TIME: 01/09/2025 [id number] PREOPERATIVE DIAGNOSIS: History of colon polyp. POSTOPERATIVE DIAGNOSIS: Small polyp in the descending colon. PROCEDURE: Colonoscopy with cold forceps biopsy. SURGEON: Selvin Crump MD ANESTHESIA: Medication given by the anesthesia department. INDICATIONS: The patient is a 49-year-old white male patient presenting here for investigation. He previously reports a polyp removed 5 years ago. The patient was felt to need to have endoscopic evaluation. He was apprised of the risks of the procedure including risk of perforation, phlebitis, untoward reaction to medication, bleeding, and missed lesions. The patient verbalized his understanding and desired to have the procedure performed. DESCRIPTION OF PROCEDURE AND FINDINGS: Patient was given medication by the anesthesia department. He had continuous pulse oximetry, ECG monitoring, and intermittent blood pressure monitoring during the examination. He was placed in the left lateral decubitus position. Digital rectal examination was performed and revealed normal anal sphincter tone, no masses, and a normal prostate. The flexible Olympus videocolonoscope was used to intubate the rectum. A view of the colon was developed sequentially to the cecum. Upon insertion and withdrawal was noted to be diverticulosis on predominantly the left side, but in the right side of the colon as well. We encountered a small polyp in the descending colon. This was biopsied using cold biopsy technique to rule out any adenomatous change. It really did appear to be more inflammatory in nature. With no other mucosal lesions being encountered, the scope was removed. The patient tolerated the procedure well, was sent back to outpatient recovery in good condition. The prep was noted to be fair to poor.
== END 2025-01-09 09:15 | disposition home or self-care (01) ==
LOC: SDC 06:08
PROVIDERS: ATTEND Family Medicine
DX: Z09 Encounter for follow-up examination after completed treatment for conditions other than malignant neoplasm (principal); Z86.0100 Personal history of colon polyps, unspecified; K63.5 Polyp of colon